=== PATIENT | female | born 1970 | race Caucasian/White ===

== ENCOUNTER 2024-03-31 14:55 | Emergency (ER) | payer OTHER, SELFPAY ==
[2024-03-31] VITALS (8 sets, daily range): BP systolic 158–201; BP diastolic 72–115; PULSE 59–90; RESP 14–21; TEMP 36.6; O2SAT 97–100
--- NOTE | 2024-03-31 15:02 | ED.NAVMDI ---
HPI - Nausea/Vomiting/Diarrhea General Chief complaint: Nausea/Vomiting/Diarrhea <Giselle Morgan PA-C - Last Filed: 03/31/24 15:03> Stated complaint: vomiting x 5 days <Giselle Morgan PA-C - Last Filed: 03/31/24 15:03> Time Seen by Provider: 03/31/24 16:19 <Giselle Morgan PA-C - Last Filed: 03/31/24 15:03> Focused HPI: 53-year-old female presents emergency department for N/V for 5 days. Patient states she is unable to keep down food and fluids and has not urinated since yesterday which prompted her to come to the ED. She also reports cough congestion. No fever, focal abdominal pain, dysuria or hematuria. GENERAL: Well-appearing, well-nourished, and in no acute distress. HEAD: Normocephalic, atraumatic. CHEST: Clear to auscultation. ?No respiratory distress. HEART: Regular rate and rhythm.? NEURO: ?Alert and oriented x3. Patient screened in triage and initial orders placed.? ?Additional care and disposition to be based upon?diagnostic testing and treatment. <Giselle Morgan PA-C - Last Filed: 03/31/24 15:03> History of Present Illness HPI Narrative: I agree with the above HPI <Ulysses Faria MD - Last Filed: 04/01/24 07:37> Related Data Allergies/Adverse reactions: Allergies Allergy/AdvReac Type Severity Reaction Status Date / Time No Known Allergies Allergy Verified 03/31/24 15:00 <Giselle Morgan PA-C - Last Filed: 03/31/24 15:03> Review of Systems Review of Systems: All systems reviewed & are unremarkable except as noted in HPI and below <Ulysses Faria MD - Last Filed: 04/01/24 07:37> Exam Narrative: APPEARANCE: Well appearing, no pain, no distress, well-nourished. HEAD: normocephalic, atraumatic. EYES: PERRLA/EOMI, conjunctivae clear. NOSE: Normal no drainage EARS:TMS clear with good light reflex. THROAT: Pharynx clear, no exudate. NECK: Supple. No adenopathy, no masses. RESPIRATORY: Airway patent, respirations nonlabored. Clear to auscultation bilaterally, no rales, rhonchi, wheezing. CARDIOVASCULAR: Regular rate and rhythm without murmurs rubs or gallops. ABDOMINAL: Soft, nontender, nondistended, normal bowel sounds MUSCULOSKELETAL: Left BKA NEURO: Alert. Cranial nerves II through XII intact. Good gait. Good coordination SKIN: Warm, dry. Normal Color <Ulysses Faria MD - Last Filed: 04/01/24 07:37> Course Course Emergency Course: Zych: Patient signed out pending UA. UA with 51-100 white blood cells, 51-100 red blood cells and +2 leuk esterase. Patient states that she did have dysuria before her current illness occurred. No CVA tenderness. She received fluids/antiemetics and is now resting comfortable in her bed. She has been able to tolerate PO. Patient given a dose of ceftriaxone and discharged on cefdinir. Patient given return precautions. <Franck Angela MD - Last Filed: 03/31/24 20:57> Vital Signs Vital signs: Vital Signs Temperature 97.9 F 03/31/24 14:57 Pulse Rate 81 03/31/24 14:57 Respiratory Rate 17 03/31/24 14:57 Blood Pressure 160/88 H 03/31/24 14:57 Pulse Oximetry 99 03/31/24 14:57 Oxygen Delivery Room Air 03/31/24 14:57 Temperature 97.8 F 03/31/24 17:56 Pulse Rate 72 03/31/24 21:22 Respiratory Rate 14 03/31/24 21:22 Blood Pressure 158/72 H 03/31/24 21:22 Pulse Oximetry 100 03/31/24 21:22 Oxygen Delivery Room Air 03/31/24 14:57 <Giselle Morgan PA-C - Last Filed: 03/31/24 15:03> Vital Signs Temperature 97.9 F 03/31/24 14:57 Pulse Rate 81 03/31/24 14:57 Respiratory Rate 17 03/31/24 14:57 Blood Pressure 160/88 H 03/31/24 14:57 Pulse Oximetry 99 03/31/24 14:57 Oxygen Delivery Room Air 03/31/24 14:57 Temperature 97.8 F 03/31/24 17:56 Pulse Rate 72 03/31/24 21:22 Respiratory Rate 14 03/31/24 21:22 Blood Pressure 158/72 H 03/31/24 21:22 Pulse Oximetry 100 03/31/24 21:22 Oxygen Delivery Room Air 03/31/24 14:57 <Ulysses Faria MD - Last Filed: 04/01/24 07:37> Vital Signs Temperature 97.9 F 03/31/24 14:57 Pulse Rate 81 03/31/24 14:57 Respiratory Rate 17 03/31/24 14:57 Blood Pressure 160/88 H 03/31/24 14:57 Pulse Oximetry 99 03/31/24 14:57 Oxygen Delivery Room Air 03/31/24 14:57 Temperature 97.8 F 03/31/24 17:56 Pulse Rate 72 03/31/24 21:22 Respiratory Rate 14 03/31/24 21:22 Blood Pressure 158/72 H 03/31/24 21:22 Pulse Oximetry 100 03/31/24 21:22 Oxygen Delivery Room Air 03/31/24 14:57 <Franck Angela MD - Last Filed: 03/31/24 20:57> MDM - Nausea/Vomiting/Diarrhea MDM Narrative Medical decision making narrative: 53-year-old female presenting to the emergency department for evaluation for nausea vomiting and dehydration. Patient was afebrile but does have a leukocytosis of 14.3 and hemoglobin of 14. Patient did have a potassium of 3 point the this was replaced with 40 mEq p.o. potassium. Patient was treated with a L of IV fluids and L of lactated Ringer's. On re-evaluation patient reports does feel significantly improved. Patient has had no further nausea and vomiting emergency department. Patient was able to provide a urine sample for us. Patient was negative for influenza RSV and for COVID. <Ulysses Faria MD - Last Filed: 04/01/24 07:37> Differential Diagnosis Differential diagnosis: Likely food poisoning, gastroenteritis, drug-induced nausea and vomiting and dehydration <Ulysses Faria MD - Last Filed: 04/01/24 07:37> Lab Data Attestation: I reviewed the patient's lab results. <Ulysses Faria MD - Last Filed: 04/01/24 07:37> Result diagrams: 03/31/24 15:20 03/31/24 15:20 <Giselle Morgan PA-C - Last Filed: 03/31/24 15:03> Labs: Lab Results 03/31/24 03/31/24 Range/Units 15:20 19:35 WBC 14.3 H (4.5-10.0) K/mm3 RBC 7.27 H (4.2-5.4) M/mm3 Hgb 14.0 (12.0-15.0) g/dL Hct 47.4 H (37.0-47.0) % MCV 65.2 L (80-100) fl MCH 19.3 L (26-34) pg MCHC 29.5 L (32-36) g/dl RDW 20.4 H (11.5-14.5) % Plt Count 412 H (150-375) k/mm3 MPV 9.1 (7.4-10.4) fl Immature Gran % (Auto) 0.4 (0-0.5) % Neut % (Auto) 75.5 H (45.5-73.1) % Lymph % (Auto) 17.7 L (18.3-44.2) % [place] % (Auto) 5.8 (2.6-8.5) % Eos % (Auto) 0.2 (0-4.4) % Baso % (Auto) 0.4 (0.2-1.2) % Lymph # (Auto) 2.52 (0.9-3.2) K/mm3 [place] # (Auto) 0.8 H (0.1-0.6) K/mm3 Eos # (Auto) 0.0 (0-0.3) K/mm3 Baso # (Auto) 0.1 (0.0-0.1) K/mm3 Abs Immat Gran (auto) 0.06 H (0.00-0.031) K/mm3 Absolute Neuts (auto) 10.8 H (1.3-6.7) K/mm3 Absolute Nucleated RBC 0.000 (0.0-0.012) K/mm3 Nucleated RBC % 0.0 (0.0-0.2) % Platelet Estimate Increased (Adequate) Hypochromasia 1+ Anisocytosis 2+ Microcytosis 1+ (NORMAL) Schistocytes None seen Sodium 135 L (137-145) mmol/L Potassium 3.3 L (3.4-5.0) mmol/L Chloride 99 (98-107) mmol/L Carbon Dioxide 24 (22-30) mmol/L Anion Gap 12 (4-12) mmol/L BUN 12 (7-17) mg/dL Creatinine 0.52 L (0.7-1.0) mg/dL Estim Creat Clear Calc 133 ml/min Estimated GFR > 60 (59 - ) Glucose 129 H (65-110) mg/dL Calcium 8.8 (8.4-10.2) mg/dL Total Bilirubin 0.9 (0.2-1.3) mg/dL AST 19 (14-36) U/L ALT 15 (6-35) U/L Alkaline Phosphatase 113 (38-126) U/L Total Protein 8.0 (6.3-8.2) g/dL Albumin 4.1 (3.5-5.1) g/dL Lipase 103 (23-300) U/L Urine Color Yellow (Yellow) Urine Appearance Turbid H (Clear) Urine pH 7.5 (5.0-9.0) Ur Specific [place] 1.025 (1.001-1.035) Urine Protein 4+ H (Negative) mg/dL Urine Glucose (UA) Negative (Negative) mg/dL Urine Ketones Trace H (Negative) mg/dL Ur Blood (Man) 2+ H (Negative) Urine Nitrate Negative (Negative) Urine Bilirubin Negative (Negative) Urine Urobilinogen 1.0 (<2.0) mg/dL Leukocyte Esterase Rfl 1+ H (Negative) YANNICK/UL Urine RBC 51-100 H (0-2) /hpf Urine WBC 51-100 H (0-3) /hpf Ur Squamous Epith Cells None seen (Few) /hpf Urine Bacteria 4+ /hpf Urine Casts 0-2 Influenza A (RT-PCR) Negative (Negative) Influenza B (RT-PCR) Negative (Negative) RSV (RT-PCR) Negative (Negative) SARS-CoV-2 RNA (RT-PCR) Negative (Negative) <Giselle Morgan PA-C - Last Filed: 03/31/24 15:03> Lab Results 03/31/24 03/31/24 Range/Units 15:20 19:35 WBC 14.3 H (4.5-10.0) K/mm3 RBC 7.27 H (4.2-5.4) M/mm3 Hgb 14.0 (12.0-15.0) g/dL Hct 47.4 H (37.0-47.0) % MCV 65.2 L (80-100) fl MCH 19.3 L (26-34) pg MCHC 29.5 L (32-36) g/dl RDW 20.4 H (11.5-14.5) % Plt Count 412 H (150-375) k/mm3 MPV 9.1 (7.4-10.4) fl Immature Gran % (Auto) 0.4 (0-0.5) % Neut % (Auto) 75.5 H (45.5-73.1) % Lymph % (Auto) 17.7 L (18.3-44.2) % [place] % (Auto) 5.8 (2.6-8.5) % Eos % (Auto) 0.2 (0-4.4) % Baso % (Auto) 0.4 (0.2-1.2) % Lymph # (Auto) 2.52 (0.9-3.2) K/mm3 [place] # (Auto) 0.8 H (0.1-0.6) K/mm3 Eos # (Auto) 0.0 (0-0.3) K/mm3 Baso # (Auto) 0.1 (0.0-0.1) K/mm3 Abs Immat Gran (auto) 0.06 H (0.00-0.031) K/mm3 Absolute Neuts (auto) 10.8 H (1.3-6.7) K/mm3 Absolute Nucleated RBC 0.000 (0.0-0.012) K/mm3 Nucleated RBC % 0.0 (0.0-0.2) % Platelet Estimate Increased (Adequate) Hypochromasia 1+ Anisocytosis 2+ Microcytosis 1+ (NORMAL) Schistocytes None seen Sodium 135 L (137-145) mmol/L Potassium 3.3 L (3.4-5.0) mmol/L Chloride 99 (98-107) mmol/L Carbon Dioxide 24 (22-30) mmol/L Anion Gap 12 (4-12) mmol/L BUN 12 (7-17) mg/dL Creatinine 0.52 L (0.7-1.0) mg/dL Estim Creat Clear Calc 133 ml/min Estimated GFR > 60 (59 - ) Glucose 129 H (65-110) mg/dL Calcium 8.8 (8.4-10.2) mg/dL Total Bilirubin 0.9 (0.2-1.3) mg/dL AST 19 (14-36) U/L ALT 15 (6-35) U/L Alkaline Phosphatase 113 (38-126) U/L Total Protein 8.0 (6.3-8.2) g/dL Albumin 4.1 (3.5-5.1) g/dL Lipase 103 (23-300) U/L Urine Color Yellow (Yellow) Urine Appearance Turbid H (Clear) Urine pH 7.5 (5.0-9.0) Ur Specific [place] 1.025 (1.001-1.035) Urine Protein 4+ H (Negative) mg/dL Urine Glucose (UA) Negative (Negative) mg/dL Urine Ketones Trace H (Negative) mg/dL Ur Blood (Man) 2+ H (Negative) Urine Nitrate Negative (Negative) Urine Bilirubin Negative (Negative) Urine Urobilinogen 1.0 (<2.0) mg/dL Leukocyte Esterase Rfl 1+ H (Negative) YANNICK/UL Urine RBC 51-100 H (0-2) /hpf Urine WBC 51-100 H (0-3) /hpf Ur Squamous Epith Cells None seen (Few) /hpf Urine Bacteria 4+ /hpf Urine Casts 0-2 Influenza A (RT-PCR) Negative (Negative) Influenza B (RT-PCR) Negative (Negative) RSV (RT-PCR) Negative (Negative) SARS-CoV-2 RNA (RT-PCR) Negative (Negative) <Ulysses Faria MD - Last Filed: 04/01/24 07:37> Lab Results 03/31/24 03/31/24 Range/Units 15:20 19:35 WBC 14.3 H (4.5-10.0) K/mm3 RBC 7.27 H (4.2-5.4) M/mm3 Hgb 14.0 (12.0-15.0) g/dL Hct 47.4 H (37.0-47.0) % MCV 65.2 L (80-100) fl MCH 19.3 L (26-34) pg MCHC 29.5 L (32-36) g/dl RDW 20.4 H (11.5-14.5) % Plt Count 412 H (150-375) k/mm3 MPV 9.1 (7.4-10.4) fl Immature Gran % (Auto) 0.4 (0-0.5) % Neut % (Auto) 75.5 H (45.5-73.1) % Lymph % (Auto) 17.7 L (18.3-44.2) % [place] % (Auto) 5.8 (2.6-8.5) % Eos % (Auto) 0.2 (0-4.4) % Baso % (Auto) 0.4 (0.2-1.2) % Lymph # (Auto) 2.52 (0.9-3.2) K/mm3 [place] # (Auto) 0.8 H (0.1-0.6) K/mm3 Eos # (Auto) 0.0 (0-0.3) K/mm3 Baso # (Auto) 0.1 (0.0-0.1) K/mm3 Abs Immat Gran (auto) 0.06 H (0.00-0.031) K/mm3 Absolute Neuts (auto) 10.8 H (1.3-6.7) K/mm3 Absolute Nucleated RBC 0.000 (0.0-0.012) K/mm3 Nucleated RBC % 0.0 (0.0-0.2) % Platelet Estimate Increased (Adequate) Hypochromasia 1+ Anisocytosis 2+ Microcytosis 1+ (NORMAL) Schistocytes None seen Sodium 135 L (137-145) mmol/L Potassium 3.3 L (3.4-5.0) mmol/L Chloride 99 (98-107) mmol/L Carbon Dioxide 24 (22-30) mmol/L Anion Gap 12 (4-12) mmol/L BUN 12 (7-17) mg/dL Creatinine 0.52 L (0.7-1.0) mg/dL Estim Creat Clear Calc 133 ml/min Estimated GFR > 60 (59 - ) Glucose 129 H (65-110) mg/dL Calcium 8.8 (8.4-10.2) mg/dL Total Bilirubin 0.9 (0.2-1.3) mg/dL AST 19 (14-36) U/L ALT 15 (6-35) U/L Alkaline Phosphatase 113 (38-126) U/L Total Protein 8.0 (6.3-8.2) g/dL Albumin 4.1 (3.5-5.1) g/dL Lipase 103 (23-300) U/L Urine Color Yellow (Yellow) Urine Appearance Turbid H (Clear) Urine pH 7.5 (5.0-9.0) Ur Specific [place] 1.025 (1.001-1.035) Urine Protein 4+ H (Negative) mg/dL Urine Glucose (UA) Negative (Negative) mg/dL Urine Ketones Trace H (Negative) mg/dL Ur Blood (Man) 2+ H (Negative) Urine Nitrate Negative (Negative) Urine Bilirubin Negative (Negative) Urine Urobilinogen 1.0 (<2.0) mg/dL Leukocyte Esterase Rfl 1+ H (Negative) YANNICK/UL Urine RBC 51-100 H (0-2) /hpf Urine WBC 51-100 H (0-3) /hpf Ur Squamous Epith Cells None seen (Few) /hpf Urine Bacteria 4+ /hpf Urine Casts 0-2 Influenza A (RT-PCR) Negative (Negative) Influenza B (RT-PCR) Negative (Negative) RSV (RT-PCR) Negative (Negative) SARS-CoV-2 RNA (RT-PCR) Negative (Negative) <Franck Angela MD - Last Filed: 03/31/24 20:57> Discharge Plan Discharge Clinical Impression: Nausea & vomiting, Dehydration, UTI (urinary tract infection) <Giselle Morgan PA-C - Last Filed: 03/31/24 15:03> Patient Disposition: Home, Self-Care <Giselle Morgan PA-C - Last Filed: 03/31/24 15:03> Condition: Stable <Giselle Morgan PA-C - Last Filed: 03/31/24 15:03> Instructions: Antibiotic Form, Dehydration (ED), Clear Liquid Diet (ED), Acute Nausea and Vomiting (ED) <Giselle Morgan PA-C - Last Filed: 03/31/24 15:03> Additional Instructions: Zofran as needed for nausea control. Clear liquid diet for the next 1-3 days. Advance to bland diet as tolerated. Complete a course of abx for UTI. Have close follow-up with your primary care physician. Take If you have any worsening symptoms then please call or return to the emergency department <Giselle Morgan PA-C - Last Filed: 03/31/24 15:03> Patient Language: Armenian <Giselle Morgan PA-C - Last Filed: 03/31/24 15:03> Prescriptions: New ondansetron 4 mg tablet,disintegrating 4 mg PO Q8H PRN (Reason: nausea and vomiting) Qty: 14 0RF cefdinir 300 mg capsule 300 mg PO Q12H Qty: 14 0RF <Giselle Morgan PA-C - Last Filed: 03/31/24 15:03> Follow-up/Referrals: PHYSICIAN,P[facility] LATCHER [Primary Care Provider] - <Giselle Morgan PA-C - Last Filed: 03/31/24 15:03>
[2024-03-31] MEDS: ONDANSETRON HCL ODT 4 MG TABLET PO (15:21)
[2024-03-31 15:27] LABS: Basophils Absolute Auto 0.1 K/mm3 (0.0-0.1); Basophils Percent Auto 0.4 % (0.2-1.2); Eosinophils Percent Auto 0.2 % (0-4.4); Hematocrit 47.4 % (37.0-47.0); Immature Granulocyte Absolute 0.06 K/mm3 (0.00-0.031); Immature Granulocyte Percent A 0.4 % (0-0.5); Lymphocytes Absolute Auto 2.52 K/mm3 (0.9-3.2); Lymphocytes Percent Auto 17.7 % (18.3-44.2); Mean Corpuscular HGB Conc 29.5 g/dl (32-36); Mean Corpuscular Hemoglobin 19.3 pg (26-34); Mean Corpuscular Volume 65.2 fl (80-100); Mean Platelet Volume 9.1 fl (7.4-10.4); Monocytes Absolute Auto 0.8 K/mm3 (0.1-0.6); Monocytes Percent Auto 5.8 % (2.6-8.5); Neutrophils Absolute Auto 10.8 K/mm3 (1.3-6.7); Neutrophils Percent Auto 75.5 % (45.5-73.1); Platelet Count Result 412 k/mm3 (150-375); Red Blood Count 7.27 M/mm3 (4.2-5.4); Red Cell Distribution Width 20.4 % (11.5-14.5); White Blood Count 14.3 K/mm3 (4.5-10.0)
[2024-03-31 15:42] LABS: Alanine Aminotransferase 15 U/L (6-35); Albumin Level 4.1 g/dL (3.5-5.1); Alkaline Phosphatase 113 U/L (38-126); Anion Gap 12 mmol/L (4-12); Aspartate Amino Transferase 19 U/L (14-36); Bilirubin,Total 0.9 mg/dL (0.2-1.3); Blood Urea Nitrogen 12 mg/dL (7-17); Calcium 8.8 mg/dL (8.4-10.2); Carbon Dioxide 24 mmol/L (22-30); Chloride 99 mmol/L (98-107); Estimated CRCL calculation 133 ml/min; Estimated Glomerular Filt Rate > 60; Glucose 129 mg/dL (65-110); Lipase 103 U/L (23-300); Potassium 3.3 mmol/L (3.4-5.0); Sodium 135 mmol/L (137-145)
[2024-03-31 15:54] LABS: Hypochromasia 1+; Platelet Estimate Increased (Adequate)
[2024-03-31 15:55] LABS: Anisocytosis 2+
[2024-03-31 15:56] LABS: Microcytosis 1+ (NORMAL); Schistocytes None Seen
[2024-03-31 16:03] LABS: Influenza A QL RT-PCR Negative (Negative); Influenza B QL RT-PCR Negative (Negative); RSV RNA, RT-PCR Negative (Negative); SARS-CoV-2 RNA PCR Negative (Negative)
--- OUTSIDE RECORDS SUMMARY | 2024-03-31 16:53 | XMS_ITS | Data Portability ---
Author Organization [place] - [facility] [employer], Main Office Address [address] [place] [address] Care Team Providers Care Patternmaker Plaster Name Role Phone APOLLO PEARCE Primary Care Provider Assessment Encounter Date Assessment Date Assessment LastModified by Organization Details LastModified Time 09/10/2022 09/10/2022 D/w pt about her findings and [place] refer pt to Pain clinic for her chronic pain meds. Cont f/u with Vascular surgeon at [place] as per schedule. Meds as directed. Routine wound care explained. BP and DM diary education given. Educated pt about alarming symptoms to monitor at home. F/u in few weeks as directed for Annual exam. [email or web address] Not available 09/10/2022 17:04:22 Plan of Treatment Reminders Order Date Submit Date Provider Last Modified By Organization Details Last Modified Time Details Appointments None recorded. Lab None recorded. Referral pain management referral 2022 023 [email or web address] Ebony Salas MD, [address] [place], [address], 3 10:31:34 Procedures None recorded. Surgeries None recorded. Imaging None recorded. Medication Orders nicotine 14 mg/24 hr daily transdermal patch 2022 023 [facility] #09871, [address] [place], [place], [id number], 3 16:49:17 gabapentin 300 mg capsule 2022 023 [facility]15296, [address] [place], [place], [phone], 3 16:49:19 trazodone 100 mg tablet [address] [facility]14907, [address] [place] [address], [id number], 3 17:04:50 silver sulfadiazin e 1 % topical cream 2022 023 [facility]63886, [address] [place] [address], [id number], 3 16:50:29 bupropion HCl XL 300 mg 24 hr tablet, extended release 2022 023 [email or web address] [facility] #48252, [address] [place] [address], [id number], 3 17:04:50 Patient TargetsNo targets recorded. Patient InstructionsNo instructions recorded. Reason for Referral Pain Management Referral for Chronic pain Referring Physician: Apollo Pearce, Family Medicine, Encounter Date: 09/10/2022 Problems Name Problem SNOMED Code Status Onset Date Resolution Date Notes Provider Name and Address Organization Details Recorded Time Hypertensiv e disorder 58318302 Active 2022 Apollo Pearce MD [address], [place], [address], [employer] 3 16:42:13 Hyperlipide leticia 78323435 Active 2022 Apollo Pearce MD [address], [place], [address], Who@ 3 16:42:16 Type 2 diabetes mellitus without complicatio n 095531334 Active 2022 Apollo Pearce MD [address], [place], [address], [employer] 3 16:42:26 Diabetic peripheral neuropathy 643898964 Active 2022 Apollo Pearce MD [address], [address], [place], [address], Who@ 3 16:42:36 Chronic pain 91706824 Active 2022 Apollo Pearce MD [address], [address], [place], [address], Who@ 3 16:43:25 Depressive disorder 72552382 Active 2022 Apollo Pearce MD [address], [address], [place], [address], Who@ 3 16:43:43 Smoker 10350551 Active 2022 Apollo Pearce MD [address], [place], [address], Who@ 3 16:43:56 Chronic insomnia 756237843 Active 2022 Apollo Pearce MD [address], [place], [address], Who@ 3 16:45:40 Partial thickness burn of right thigh 1392575407542 9103 Active 2022 Apollo Pearce MD [address], [place], [address], Who@ 3 16:49:47 Obesity 744823651 Active 2022 Apollo Pearce MD [address], [place], [address], Who@ 3 17:02:44 Problem Notes None recorded. Procedures Surgical History Date Name Laterality Status Provider Name and Address Organization Details Recorded Time Smoking Cessation completed Apollo Pearce MD [address], [place], [address], Who@ 09/10/2022 16:53:05 Imaging Results None recorded. Procedure Notes None recorded. Medical Equipment None Reported. Allergies Allergen ID Allergen Name Allergen Category Reaction Reaction Severity Criticality Documentation Date Start Date Code Code System Note Provider Name and Address Organization Details Recorded Time 86259 metformin medicatio n abdominal pain severe Not available 09/10/2022 6809 RxNorm Apollo Pearce MD [address], [place], [address] , [facility] [employer] [facility] 3 16:47:39 Medications Name Sig Start Date Stop Date Status Note LastModified by Organization Details LastModified Time losartan 50 mg tablet TAKE 1 TABLET(50 MG) BY MOUTH DAILY active Not Available Not Available No t Available silver sulfadiazin e 1 % topical cream APPLY 1.5 MM THICK LAYER TO ENTIRE BURN AREA TWICE DAILY active Not Available Not Available No t Available metformin 500 mg tablet 09/10 completed Not Available Not Available Not Available doxycycline hyclate 100 mg capsule 02/01 completed Not Available Not Available Not Available atorvastati n 20 mg tablet active Not Available Not Available Not Available nicotine 14 mg/24 hr daily transdermal patch APPLY ONE PATCH EVERY DAY DIRECTED active Not Available Not Available No t Available cetirizine 5 mg tablet active Not Available Not Available Not Available hydrocodone 5 mg-acetamin ophen 325 mg tablet TAKE 1 TABLET BY MOUTH EVERY 6 HOURS NEEDED FOR PAIN 02/01 completed Not Available Not Available Not Available ondansetron HCl 4 mg tablet 09/10 completed Not Available Not Available Not Available metronidazo le 500 mg tablet 09/10 completed Not Available Not Available Not Available acetaminoph en 500 mg tablet TAKE 1 TABLET BY MOUTH EVERY 6 HOURS NEEDED FOR PAIN active Not Available Not Available No t Available trazodone 100 mg tablet TAKE 1 TABLET BY MOUTH EVERY DAY AT BEDTIME active Not Available Not Available No t Available OneTouch Ultra Test strips TEST BLOOD SUGAR TWICE DAILY active Not Available Not Available No t Available amlodipine 10 mg tablet TAKE 1 TABLET(10 MG) BY MOUTH DAILY active Not Available Not Available No t Available glipizide ER 2.5 mg tablet, extended release 24 hr TAKE 1 TABLET(2. 5 MG) BY MOUTH DAILY WITH BREAKFAST . DO NOT BREAK OR CRUSH TABLET active Not Available Not Available No t Available cephalexin 500 mg capsule 02/01 completed Not Available Not Available Not Available erythromyci n 5 mg/gram (0.5 %) eye ointment APPLY THIN LAYER IN RIGHT EYE EVERY 6 HOURS FOR 10 DAYS 02/01 completed Not Available Not Available Not Available losartan 25 mg tablet 02/01 completed Not Available Not Available Not Available gabapentin 300 mg capsule TAKE 1 CAPSULE BY MOUTH EVERY 8 HOURS DIRECTED active Not Available Not Available No t Available vancomycin 10 gram intravenous solution active Not Available Not Available Not Available levofloxaci n 750 mg tablet 09/10 completed Not Available Not Available Not Available albuterol sulfate HFA 90 mcg/actuati on aerosol inhaler INHALE 2 PUFFS INTO LUNGS EVERY 4 HOURS NEEDED FOR WHEEZING OR SHORTNESS OF BREATH active Not Available Not Available No t Available losartan 50 mg-hydrochl orothiazide 12.5 mg tablet TAKE 1 TABLET BY MOUTH EVERY DAY FOR 5 DAYS active Not Available Not Available No t Available metoclopram shell 10 mg tablet 09/10 completed Not Available Not Available Not Available amoxicillin 875 mg-potassiu m clavulanate 125 mg tablet TAKE 1 TABLET BY MOUTH TWICE DAILY FOR 10 DAYS 02/01 completed Not Available Not Available Not Available ceftriaxone 2 gram solution for injection active Not Available Not Available No t Available oxycodone 5 mg tablet 09/10 completed Not Available Not Available Not Available potassium chloride ER 10 mEq tablet,exte nded release(par t/cryst) 09/10 completed Not Available Not Available Not Available bupropion HCl XL 300 mg 24 hr tablet, extended release TAKE 1 TABLET BY MOUTH EVERY DAY DIRECTED active Not Available Not Available No t Available duloxetine 60 mg capsule,del ayed release 09/10 completed Not Available Not Available Not Available oxycodone 10 mg tablet TAKE 1 TABLET BY MOUTH EVERY SIX HOURS NEEDED 02/01 completed Not Available Not Available Not Available Gavilax 17 gram/dose oral powder DISSOLVE INSERT CAPFUL IN 240 ML OF WATER AND DRINK BY MOUTH DAILY NEEDED FOR CONSTIPAT ION active Not Available Not Available No t Available OneTouch Ultra2 Meter TEST BLOOD SUGAR TWICE DAILY active Not Available Not Available No t Available Vitals Date Recorded Body height Body mass index (BMI) Body weight Body temperature Heart rate Respiratory rate Systolic blood pressure Diastolic blood pressure Provider Name and Address Organization Details Last Updated DateTime 3 162.56 cm 34.3 kg/m2 61991.4 7 g 98.5 [degF] 98 /min 16 /min 140 mm[Hg] 77 mm[Hg] Ulysses Wadsworth Ciafo [facility] [employer] 16:57:06 Date Recorded Oxygen saturation Oxygen saturation in Arterial blood by Pulse oximetry Provider Name and Address Organization Details Last Updated DateTime 09/10/2022 98 % 98 % Apollo Pearce MD [address] [facility], [facility] [address], [place], [address], [place] [facility] [employer] 09/10/2022 16:57:03 Social History Question Answer Notes LastModified by Organizat ion Details LastModified Time Tobacco Smoking Status Current Every Day Smoker Ulysses Wadsworth fritz, [place] [facility] [employer] 09/10/2022 16:31:25 Do You Have An Advance Directive? No Information n ot available 09/10/2022 Is Blood Transfusion Acceptable In An Emergency? Yes Information not available 09/10/2022 What Is Your Code Status? Full Code Information not available 09/10/2022 In The 14 Days Before Symptom Onset, Have You Had Close Contact With A Laboratory-confirm ed COVID-19 While That Case Was Ill? No Information n ot available 09/10/2022 In The 14 Days Before Symptom Onset, Have You Had Close Contact With A Person Who Is Under Investigation For COVID-19 While That Person Was Ill? No Information not available 09/10/2022 What Type Of Diet Are You Following? REGULAR Information n ot available 09/10/2022 How Many Days Of Moderate To Strenuous Exercise, Like A Brisk Walk, Did You Do In The Last 7 Days? 0 Information not available 09/10/2022 Do You Have A Medical Power Of Public Health Sanitarian? No Information not available 09/10/2022 Do You Use Your Seat Belt Or Car Seat Routinely? Yes Information not available 09/10/2022 At What Age Did You Start Smoking Tobacco? 18 Information not available 09/10/2022 How Much Tobacco Do You Smoke? 2 PPW Information not available 09/10/2022 Do You Participate In Social Media? Yes Information not available 09/10/2022 What Types Of Sporting Activities Do You Participate In? Non Information not available 09/10/2022 Do You Feel Stressed (tense, Restless, Nervous, Or Anxious, Or Unable To Sleep At Night)? [id number] Information not available 09/10/2022 How Many Years Have You Smoked Tobacco? 20 Information not available 09/10/2022 Have You Recently Traveled Abroad? No Information not available 09/10/2022 Do You Or Have You Ever Used Any Other Forms Of Tobacco Or Nicotine? No Information not available 09/10/2022 Sex: Female Functional Status Question Answer Note LastModified by Organization D etails LastModified Time What is your exercise level? None Information not available 09/10/2022 Mental Status None recorded. Family History Nothing Reported. Medical History Condition Response BLINDNESS N RHEUMATIC FEVER N BLADDER PROBLEMS N KIDNEY STONES N MRSA N OTHER # 1 N POLIO N LUNG DISEASE/DISORDER N HISTORY OF DRUG ABUSE N RADIATION / CHEMOTHERAPY N COPD N Other # 2 N BLOOD DISEASES N SURGERY N EAR OR HEARING PROBLEMS N MUMPS N SHINGLES N DEPRESSION (INCLUDING POST ) N FEMALE PROBLEMS / INFECTIONS N BOWEL PROBLEMS N FAILED BACK SYNDROME N STROKE/TIA N THYROID DISEASE N ULCERS N BENIGN PROSTATIC HYPERPLASIA N MEASLES N CERVICALGIA N HYPOTENSION N TB SKIN TEST N MYOCARDIAL INFARCTION N PARAPELGIA N OBESITY N GERD/NAUSEA N ANEURYSM N URINARY/BLADDER/KIDNEY PROBLEMS N CORONARY ARTERY DISEASE (CAD) N MENIERE'S DISEASE N Do you have Advance directive? N ADDICTION CONCERNS N ENDOMETRIOSIS N USE OF BLOOD THINNERS N SKIN PROBLEMS N EMPHYSEMA N GASTROINTESTINAL DISORDER N PERIPHERAL ARTERY DISEASE N MUSCLE,JOINT OR BONE PROBLEMS N GASTROINTESTINAL BLEEDING N BLOOD CLOTS N ASTHMA N Abdominal Pain N CATARACTS N ARTERIAL INSUFFICIENCY N ERECTILE DYSFUNCTION N GI PROBLEMS N CHF N Low Testosterone N NEUROPATHY N INFERTILITY N AIDS/HIV N FRACTURES N CHEMOTHERAPY / RADIATION N VISION/EYE PROBLEMS N LIVER DISEASE N HYPERTENSION N TOURETTE'S N ANXIETY DISORDER N BLOOD TRANSFUSION N ANEMIA/BLOOD DISORDER N CHRONIC EAR INFECTIONS N BRONCHITIS N TUBERCULOSIS N GLAUCOMA N FOOT PROBLEM N DIVERTICULITIS N CHICKENPOX N SLEEP APNEA N BACK INJECTIONS N ALLERGIES/HAYFEVER N INFECTIOUS DISEASE N HEART ARRHYTHMIA N PROSTATE N ESRD N INSOMNIA N HIGH CHOLESTEROL / HYPERLIPIDEMIA N HYPERTHYROIDISM N EYE PROBLEMS N PVD N EATING DISORDER N EDEMA N CHRONIC PAIN SYNDROME N CAROTID BLOCKAGE N CONSTIPATION N BACK / NECK PROBLEMS N HAVE YOU BEEN HOSPITALIZED OR SEEN IN E ER IN THE PAST YEAR ? N ATHEROSCLEROSIS N BREAST PROBLEMS N DIALYSIS N POLYCYSTIC OVARIES N ECZEMA N FIBROMYALGIA N OSTEOPOROSIS N ARTHRITIS N NO SIGNIFICANT PAST MEDICAL HISTORY N APPENDICITIS N DIABETES, TYPE N BAD TEETH N VON WILLIBRAND'S DISEASE N HEARTBURN / REFLUX N ADD/ADHD N AUTISM SPECTRUM DISORDER (ASD) N POST LAMINECTOMY SYNDROME N HEPATITIS / LIVER DISEASE N PULMONARY DISEASE N GOUT N SLEEP DISORDER N ALZHEIMER'S DISEASE N PAIN N HERPES N DEMENTIA N HEADACHES/MIGRAINES N SEIZURES/EPILEPSY N VASCULAR DISEASE N PACEMAKER N DIZZINESS N HEART DISEASE/HEART PROBLEMS N KIDNEY DISEASE N DEVELOPMENTAL OR BEHAVIORAL DISORDERS N MULTIPLE SCLEROSIS N SCARLET FEVER N MENTAL DISORDER/ILLNESS N NEUROPSYCHOLOGICAL N CARDIAC ARRHYTHMIA N CANCER: SPECIFY N PNEUMONIA N ATRIAL FIBRILLATION N Gall Stones N PULMONARY EMBOLISM N AUTOIMMUNE DISEASE N Gynecological History Statement/Question Response STIs/STDs N Sexually Active? N Obstetrics History GPAL:G 3 P 0 0 0 0 Past Encounters Encounter ID Performer Location Encounter Start Date Encounter Closed Date Diagnosis/Indication Diagnosis SNOMED-CT Code Diagnosis ICD10 Code Diagnosis Note [id number] Apollo Pearce MD [facility] [address] [address] 09/10/2022 16:21:55 09/10/2022 17:10:39 Amputated left lower limb below knee 330312738 Z89.512 08/04/22 Hypertensive disorder 38 989165 I10 Hyperlipidemia 69042207 E78.5 Type 2 baltazar betes mellitus without complication 488559486 E11.9 Diabetic p eripheral neuropathy 720184735 E11.40 Chronic pain 17950038 G8 9.29 Depressive disorder 3548 9007 F32.A Smoker 75001136 F17.200 Chronic insomnia 9764632 04 F51.04 Partial th ickness burn of right thigh 0018076579 7031132 T24.211A Obesity 624628818 E66.9 Health Concerns Section Related Observation LastModified by Organization Detai ls LastModified Time None Recorded Concern Status LastModified by Organization Details LastModified Time None Recorded Advance Directives Directive N: Payers Encounter Date Sequence Insurance Name Policy Number Policy Mccoy Covered Member ID Mccoy Member ID Guarantor Name 09/10/2022 1 [facility] (MEDICAID HMO) [id number] Sandra Hernandez [id number] Sandra Notes Date Note Type Note Provider Name and Address Organization Details Recorded Time 09/10/2022 text/html New pt visit:51 yo F is here to establish her care. Pt was seeing PCP at [facility] in the past.Needs refills on her meds. 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 Pt will be getting a prosthetic leg in future with them. Pt has chronic pain and is on [place] 10/325 QID for last several years by her PCP. Pt has never seen any specialist for this in the past. C/o insomnia and is on Ambien for it for last several years. C/o Rt thigh burn yesterday when she was making her oatmeal. No other area rash. Doing overall good with her mood. Denies any mood swings/SI/HI. Pt lives with her mom.PMH, FH and SH reviewed. Apollo Pearce MD [address] [place] [address], [facility] [address], [place], [address], [facility] [employer] 09/10/2022 17:04:59 OBGyn Episode No OBEpisode recorded.
--- OUTSIDE RECORDS SUMMARY | 2024-03-31 16:53 | XMS_ITS | Clinical Summary ---
Author Organization [facility] Address [address] [place] [address] Care Team Providers Care Roll Clamp Operator Name Role Phone Apollo Pearce MD Primary Care Provider [phone] Allergies Active Allergy Reactions Criticality Noted Date Comments Metformin Stomach upset High 10/08/2023 Medications albuterol HFA (PROVENTIL HFA,VENTOLIN HFA,PROAIR HFA) 90 mcg/actuation inhaler INHALE 2 PUFFS INTO LUNGS EVERY 4 HOURS NEEDED FOR WHEEZING OR SHORTNESS OF BREATH Active amLODIPine (NORVASC) 10 mg tablet Take by mouth daily 3 Active aspirin 81 mg chewable tablet Take 1 tablet (81 mg total) by mouth daily Active atorvastatin (LIPITOR) 20 mg tablet Active buPROPion XL (WELLBUTRIN XL) 300 mg 24 hr tablet Take 1 tablet (300 mg total) by mouth daily 3 Active carvediloL (COREG) 6.25 mg tablet Take 1 tablet (6.25 mg total) by mouth 1 Active cetirizine (ZyrTEC) 5 mg tablet Take 1 tablet (5 mg total) by mouth daily Active DULoxetine DR (CYMBALTA) 30 mg capsule Take 1 capsule (30 mg total) by mouth daily 1 Active gabapentin (NEURONTIN) 300 mg capsule TAKE 1 CAPSULE BY MOUTH EVERY 8 HOURS DIRECTED 3 Active glipiZIDE XL (GLUCOTROL XL) 2.5 mg 24 hr tablet TAKE 1 TABLET(2.5 MG) BY MOUTH DAILY WITH BREAKFAST. DO NOT BREAK OR CRUSH TABLET 3 Active HYDROcodone-gino taminophen (NORCO) 5-325 mg per tablet Take by mouth every 6 (six) hours as needed Active ibuprofen 200 mg tab/cap Take 1 tablet/capsule (200 mg total) by mouth every 6 (six) hours as needed 8 Active losartan (COZAAR) 25 mg tablet Active losartan (COZAAR) 50 mg tablet Take 1 tablet (50 mg total) by mouth daily 3 Active losartan (COZAAR) 100 mg tablet Take 1 tablet (100 mg total) by mouth daily 1 Active losartan-hydroC HLOROthiazide (HYZAAR) 50-12.5 mg per tablet TAKE 1 TABLET BY MOUTH EVERY DAY FOR 5 DAYS Active morphine ER (MS CONTIN) 60 mg 12 hr tablet Take 2 tablets (120 mg total) by mouth every 12 (twelve) hours 0 Active nicotine (NICODERM CQ) 14 mg APPLY ONE PATCH EVERY DAY DIRECTED Active oxyCODONE (ROXICODONE) 10 mg tablet TAKE 1 TABLET BY MOUTH EVERY SIX HOURS NEEDED Active polyethylene glycol (MIRALAX) 17 gram packet Take 1 packet (17 g total) by mouth daily as needed 3 Active traZODone (DESYREL) 100 mg tablet Take 1 tablet (100 mg total) by mouth nightly 3 Active zolpidem (AMBIEN) 5 mg tablet Take 1 tablet (5 mg total) by mouth nightly as needed 1 Active Active Problems Problem Noted Date Diagnosed Date Hypokalemia 11/19/2022 Chronic insomnia 09/10/2022 Chronic pain 09/10/2022 Depressive disorder 09/10/2022 Diabetic peripheral neuropathy (CMS/HCC) 023 Hyperlipidemia 09/10/2022 Obesity 09/10/2022 Partial thickness burn of right thigh 09/10/2022 Smoker 09/10/2022 Type 2 diabetes mellitus without complication (C MS/HCC) 09/10/2022 Bacteremia 07/30/2022 Syncope 07/30/2022 Osteomyelitis 07/17/2022 Osteomyelitis of foot, left, acute (CMS/HCC) 02/2021 Diabetic foot ulcer (CMS/HCC) 01/08/2022 Ulcers of both lower legs 01/24/2021 Leukocytosis (leucocytosis) 03/05/2019 Pre-diabetes 06/18/2017 Major depressive disorder wi th single episode, in full remission 10/06/2016 Morbid obesity due to excess calories 10/06/2016 Constipation due to opioid therapy 07/07/2015 Chronic, continuous use of opioids 07/05/2015 Neuropathy 09/24/2012 Overview (10/08/2023): Unspecified autoimmune neuropathy, involving both large and small fibers. Dr Rome. Hypertension 11/09/2011 Neuropathic pain 05/18/2011 Paresthesia of both legs 01/30/2011 Fatty infiltration of liver 12/01/2010 Allergic rhinitis 06/05/2008 Dyslipidemia 06/05/2008 Generalized anxiety disorder 06/05/2008 Encounters Date Type Department Care Team Description 03/07/2024 6:04 PM DEVELOPER PROGRAMMER - 03/07/2024 11:59 PM DEVELOPER PROGRAMMER Hospital Encounter [address] [id number] Dysuria Discharge Disposition: Discharge to home or self care 03/07/2024 5:30 PM DEVELOPER PROGRAMMER Office Visit [facility] Care at [address] [address] Bri Keys NP Dysuria (Primary Dx) from Last 3 Months Social History Tobacco Use Types Packs/Day Years Used Date Smoking Tobacco: Never Assessed Comments Unknown Sex and Gender Information Value Date Recorded Sex Assigned at Not on file Legal Sex Female 9:40 AM DEVELOPER PROGRAMMER Gender Identity Not on file Sexual Orientation Not on file Obstetrics History Last Filed Vital Signs Vital Sign Reading Time Taken Comments Blood Pressure 128/70 03/07/2024 6:02 PM DEVELOPER PROGRAMMER Pulse 79 03/07/2024 6:02 PM DEVELOPER PROGRAMMER Temperature 36.7 C (98.1 F) 03/07/2024 6:02 PM DEVELOPER PROGRAMMER Respiratory Rate 28 03/07/2024 6:02 PM DEVELOPER PROGRAMMER Oxygen Saturation 99% 03/07/2024 6:02 PM DEVELOPER PROGRAMMER Inhaled Oxygen Concentration - - Weight 111.1 kg (245 lb) 03/07/2024 6:02 PM DEVELOPER PROGRAMMER Height 170.2 cm (5' 7 ) 11/25/2023 12:16 PM CDT Body Mass Index 38.37 11/25/2023 12:16 PM CDT Plan of Treatment Health Maintenance Due Date Last Done Comments Albumin Creatinine Ratio, Urine 1972 Breast Cancer Screening-Mammogram 1972 Cervical Cancer Screening 1972 Colon Cancer Screening-Colonoscopy 1972 Depression Screening 1972 Hemoglobin A1C 1972 Hepatitis C Screening 1972 eGFR 1972 Dilated Eye Exam 1972 Foot Exam 1972 Pneumococcal vaccine <65 (1 of 2 - PCV) 1978 Hepatitis B Screening 1990 Regular Well Visit/Exam 18-64 1990 Zoster Vaccine (1 of 2) 2022 Lipid Panel 01/09/2023 01/09/2022, 01/17/2008 Covid-19 Vaccine (3 - 2023-2 5 season) 2023 07/07/2020, 06/09/2020 DTaP/Tdap/Td Vaccine (2 - Td or Tdap) 01/15/2032 01/14/2022, 02/22/2003 Influenza Vaccine Completed 2023, , 12/07/2018, Additional history exists Procedures Procedure Name Priority Date/Time Associated Diagnosis Comments POCT URINALYSIS DIPSTICK Routine 03/07/2024 6:07 PM DEVELOPER PROGRAMMER Dysuria URINE CULTURE Routine 03/07/2024 6:04 PM DEVELOPER PROGRAMMER Dysuria from Last 3 Months Results * (ABNORMAL) POCT urinalysis dipstick (03/07/2024 6:07 PM DEVELOPER PROGRAMMER) Color, Urine, POC Dark Yellow Clarity, ur, POC Cloudy(A) Clear Glucose, ur, POC Negative Negative MG/DL Bilirubin, ur, POC Negative Negative, Small, Moderate, Large Ketones, ur, POC Negative Negative Specific [place], POC 1.020 1.003 - 1.030 Blood, ur, POC Small(A) Negative pH, ur, POC 6.5 5.0 - 8.0 Protein, ur, POC 100.(A) Negative Urobilinogen, urine, POC 0.2 0.2 - 1.0 mg/dL Nitrite, ur, POC Negative Negative Leukocytes, ur, POC Negative Negative Lot Number [id number] Urine 03/07/2024 6:07 PM DEVELOPER PROGRAMMER Bri Keys NP POINT OF CARE TEST ORDERAB LES Final Result * Urine culture Urine, clean voided (03/07/2024 6:04 PM DEVELOPER PROGRAMMER) Report Final Report: Less than 100,000 colonies/mL (clinically insignificant growth based on current clinical standards) Comment:Testing performed by : [facility], [address] [place]., [address] Organism (CLINICALLY INSIGNIFICANT GROWTH ROSIE Urine, clean voided 03/07/2024 6:04 PM DEVELOPER PROGRAMMER 03/08/2024 2:15 AM DEVELOPER PROGRAMMER Narrative ROSIE SERNA - 03/10/2024 6:33 AM DEVELOPER PROGRAMMER Testing performed by [facility] ([phone]) Bri Keys NP LAB MICROBIOLOGY - GENERAL ORDERABLES Final Result ROSIE [id number] [address] Department [place] [address] from Last 3 Months Insurance [facility] Care Teams Roll Clamp Operator Relationship Specialty Start Date End Date Apollo Pearce MD [address] [place] [address] [place] [address] PCP - General Family Medicine 09/15/22
--- OUTSIDE RECORDS SUMMARY | 2024-03-31 16:53 | XMS_ITS | Referral Summary ---
Author Organization [facility] Address [address] [place] [address] Care Team Providers Care Hand Grinder Name Role Phone Apollo Pearce MD Primary Care Provider [phone] Encounters Date Type Department Care Team Description 03/07/2024 6:04 PM FINGERPRINT CLASSIFIER - 03/07/2024 11:59 PM FINGERPRINT CLASSIFIER Hospital Encounter [address] [id number] Dysuria Discharge Disposition: Discharge to home or self care 03/07/2024 5:30 PM FINGERPRINT CLASSIFIER Office Visit [facility] [address] [address] Bri Keys NP Dysuria (Primary Dx) from Last 3 Months Allergies Active Allergy Reactions Criticality Noted Date [...] 06/05/2008 Dyslipidemia 06/05/2008 Generalized anxiety disorder 06/05/2008 Social History Tobacco Use Types Packs/Day Years Used Date Smoking Tobacco: Never Assessed Comments Unknown Sex and Gender Information Value Date Recorded Sex Assigned at Not on file Legal Sex Female 9:40 AM FINGERPRINT CLASSIFIER Gender Identity Not on file Sexual Orientation Not on file Last Filed Vital Signs Vital Sign Reading Time Taken Comments Blood Pressure 128/70 03/07/2024 6:02 PM FINGERPRINT CLASSIFIER Pulse 79 03/07/2024 6:02 PM FINGERPRINT CLASSIFIER Temperature 36.7 C (98.1 F) 03/07/2024 6:02 PM FINGERPRINT CLASSIFIER Respiratory Rate 28 03/07/2024 6:02 PM FINGERPRINT CLASSIFIER Oxygen Saturation 99% 03/07/2024 6:02 PM FINGERPRINT CLASSIFIER Inhaled Oxygen Concentration - - Weight 111.1 kg (245 lb) 03/07/2024 6:02 PM FINGERPRINT CLASSIFIER Height 170.2 cm (5' 7 ) 11/25/2023 12:16 PM CDT Body Mass Index 38.37 11/25/2023 12:16 PM CDT Plan of Treatment Not on file Procedures Procedure Name Priority Date/Time Associated Diagnosis Comments POCT URINALYSIS DIPSTICK Routine 03/07/2024 6:07 PM FINGERPRINT CLASSIFIER Dysuria URINE CULTURE Routine 03/07/2024 6:04 PM FINGERPRINT CLASSIFIER Dysuria from Last 3 Months Results * (ABNORMAL) POCT urinalysis dipstick (03/07/2024 6:07 PM FINGERPRINT CLASSIFIER) Color, Urine, POC Dark Yellow Clarity, ur, POC Cloudy(A) Clear Glucose, ur, POC Negative Negative MG/DL Bilirubin, ur, POC Negative Negative, Small, Moderate, Large Ketones, ur, POC Negative Negative Specific [place], POC 1.020 1.003 - 1.030 Blood, ur, POC Small(A) Negative pH, ur, POC 6.5 5.0 - 8.0 Protein, ur, POC 100.(A) Negative Urobilinogen, urine, POC 0.2 0.2 - 1.0 mg/dL Nitrite, ur, POC Negative Negative Leukocytes, ur, POC Negative Negative Lot Number [id number] Urine 03/07/2024 6:07 PM FINGERPRINT CLASSIFIER Bri Keys NP POINT OF CARE TEST ORDERAB LES Final Result * Urine culture Urine, clean voided (03/07/2024 6:04 PM FINGERPRINT CLASSIFIER) Report Final Report: Less than 100,000 colonies/mL (clinically insignificant growth based on current clinical standards) Comment:Testing performed by : [facility], [address] [place]., [address] Organism (CLINICALLY INSIGNIFICANT GROWTH ROSIE Urine, clean voided 03/07/2024 6:04 PM FINGERPRINT CLASSIFIER 03/08/2024 2:15 AM FINGERPRINT CLASSIFIER Narrative ROSIE SERNA - 03/10/2024 6:33 AM FINGERPRINT CLASSIFIER Testing performed by [facility] Laboratory ([phone]) Bri Keys NP LAB MICROBIOLOGY - GENERAL ORDERABLES Final Result ROSIE SERNA [id number] [place] [address] from Last 3 Months Insurance [facility] Care Teams Hand Grinder Relationship Specialty Start Date End Date Apollo Pearce MD [address] [place] [address] [place] [address] PCP - General Family Medicine 09/15/22
--- OUTSIDE RECORDS SUMMARY | 2024-03-31 16:53 | XMS_ITS | Continuity of Care Document ---
Author Organization [facility] Address [address] [place] [address] Phone Care Team Providers [facility] Name Role Phone Stacie Mckeon MD Unavailable Unavailable Medications Medication Instructions Dosage Effective Dates (start - stop) Status Comments Ortho-Cept (28) 0.15 mg-30 mcg Tab ORTHO-CEPT 28 DAY TABLET<><> 1 TAB by mouth (PO) each morning.<><> First day of next or Wednesday.<><> As directed by physician.<><>DISPEN SE: <>REFILLS: 9<>Provider: STACIE MCKEON MD<>Provider SHERITA: [id number]<>Health Center: [facility]<><> - No Longer Active Procedures Procedure Date OFFICE O/P EST 5 MIN SKIN TEST; TUBERCULOSIS, INTRADERMAL May OFFICE O/P EST 5 MIN Advance Directives Directive Yes / No Effective Date File Name No Information Encounters Encounter Description Practice Location Reason(s) For Visit Diagnoses Date Provider Providers Copied on Encounter [facility] , [address], [place], [place], [id number], [place] tel:[phone] [facility] No Information [facility]. [address], [place], [place], [address], [place]. tel:[phone] OFFICE O/P EST 5 MIN [facility] , [address], [place], [place], [id number], tel:[phone] [facility] FOLLOW-UP EXAM NOS No Information OFFICE O/P EST 5 MIN [facility] , [address], [place], [place], [address], [place] tel:[phone] [facility] ROUTINE MEDICAL EXAM No Information Family History Family Member Type Diagnosis Age At Onset No Information Payers Payer name Insurance type Covered constitution party ID Authoriza tion(s) No Information Social History Type Description Quantity Date Captured Comments Sex Female Smoking Status No Information Chief Complaint And Reason For Visit No Information Reason For Referral Reason For Referral No Information History Of Present Illness Encounter Date Complaint History Of Prese nt Illness No Information Functional Status Date Functional Assessmen t No Information Instructions Date Instruction Additional Infor mation No Information Assessments Type Assessment Date No Information Patient Care Teams Name Effective Dates (start - stop) Status Members No Information
--- OUTSIDE RECORDS SUMMARY | 2024-03-31 16:53 | XMS_ITS | Continuity of Care Document ---
Author Organization [employer] Address [address] [place] [address] Phone Care Team Providers Care Customer Service Cashier Name Role Phone Manjinder Kim MD Unavailable Unavaila ble Allergies, Adverse Reactions, Alerts Substance Reaction Status Criticality No Known Allergies Active No Inform ation Medications Medication Instructions Dosage Effective Dates (start - stop) Status Comments duloxetine 60 mg capsule,delayed release TAKE 1 CAPSULE BY MOUTH EVERY DAY - Active LOSARTAN-HCTZ 100-25 MG TAB TAKE 1 TABLET BY MOUTH EVERY MORNING - Active hydrocodone 10 mg-acetaminophen 325 mg tablet take 2 tablet by oral route every 4 - 6 hours as needed for pain 2 tablet - Active Rx refilled on 05/08/21. Pt asking for refill. This is to replace 05/08 Rx BUPROPION HCL XL 300 MG TABLET TAKE 1 TABLET(300 MG) BY MOUTH DAILY CONCRETE SAW OPERATOR - Active OneTouch Verio Flex Meter for once daily use - Active OneTouch Verio test strips for once daily testing - Active OneTouch UltraSoft Lancets for once daily testing - Active Ambien 10 mg tablet take 1 tablet by oral route every day at bedtime 10 MG - Active Procedures Procedure Date URINALYSIS, DIPSTICK (UA) - Office Lab S SYST BP >= 140 MM HG6 IT DIAST BP 80-89 MM HG OFFICE [id number] BODY MASS INDEX DOCD SYST BP >= 140 MM HG6 IT DIAST BP 80-89 MM HG IMMUN ADMIN (INC PERCUTANEOUS) SINGLE, F IRST INJ FLU VAC NO PRSV 4 MARK, 0.5mL DOSAGE OFFICE [id number] BODY MASS INDEX DOCD SYST BP >= 140 MM HG6 IT DIAST BP >= 90 MM HG Pt inelig neg scrn depres OFFICE [id number] BODY MASS INDEX DOCD SYST BP GE 130 - 139MM HG DIAST BP >= 90 MM HG ROUTINE VENIPUNCTURE OFFICE [id number] BODY MASS INDEX DOCD SYST BP LT 130 MM HG DIAST BP 80-89 MM HG Pt inelig neg scrn depres OFFICE [id number] BODY MASS INDEX DOCD SYST BP >= 140 MM HG6 IT DIAST BP 80-89 MM HG IMMUN ADMIN (INC PERCUTANEOUS) SINGLE, F IRST INJ FLU VAC NO PRSV 4 MARK, 0.5mL DOSAGE CBC, INC PLATELETS AND DIFFERENTIAL COMPREHEN METABOLIC PANEL CMP 0 HEMOGLOBIN A1C HGA1C, GLYCO LIPID PANEL ROUTINE VENIPUNCTURE Brief Emotional/Behavioral A ssessment, With Scoring/Doct, Per Stndrd Instrument Pt inelig neg scrn depres HEALTH RISK ASSESSMENT, PATIENT-FOCUSED OFFICE [id number] BODY MASS INDEX DOCD SYST BP LT 130 MM HG DIAST BP 80-89 MM HG Advance Directives Directive Yes / No Effective Date File Name No Information Encounters Encounter Description Practice Location Reason(s) For Visit Diagnoses Date Provider Providers Copied on Encounter [facility], [address], [place], [place], [address] , [place] tel: [phone] [facility] No Information 2 Julio Mario er. [address], [address], [place], [place], [address] , [place]. tel: [phone] [facility], [address], [place], [place], [address] , [place] tel: [phone] [facility] UTI symptoms 2 Normlaney Mario er. [address], [address], [place], [place], [address] , [place]. tel: [phone] Referring Provider: Manjinder Kim, [address], [place], [address]. tel:[phone] [facility], [address], [place], [place], [address] , tel: [phone] [facility] No Information 2 Julio Mario er. [address], [address], [place], [place], [address] , [place]. tel: [phone] [facility], [address], [place], [place], [address] , [place] tel: [phone] [facility] No Information 2 Asadlaney Mario er. [address], [address] [place], [place], [place], [address] , [place]. tel: [phone] [facility], [address], [place], [place], [address] , [place] tel: [phone] [facility] No Information 2 Julio Mario er. [address], [address] [place], [place], [place], [address] , [place]. tel: [phone] OFFICE [id number] TAILED [facility], [address], [place], [place], [address] , [place] tel: [phone] [facility] Hypertension (chief complaint)ost eomyelitis (chief complaint)dep ression (chief complaint)Chr onic Conditions (chief complaint) Chronic multifocal osteomyelitis of foot, unspecified lateralityBenign essential hypertensionType 2 diabetes mellitus with foot ulcer, without long-term current use of insulinNon-press ure chronic ulcer of other part of unspecified foot with unspecified severityChronic, continuous use of opioids Dec- 1 Julio Mario er. [facility] [address], [address], [id number] , . [phone] Referring Provider: Mnajinder Kim, [address] [place] [address] [address], [place], [address]. tel:[phone] [facility], [address], [place], [place], [address] , tel: [phone] [facility] No Information 0 1 Julio Mario er. [address] [place] [address], [address], [id number] , . tel:[phone] OFFICE [id number]-OSC-QH [facility], [address], [place], [place], [address] , [place] tel: [phone] [facility] Chronic Conditions (chief complaint) Essential (primary) hypertensionMorb id (severe) obesity due to excess caloriesRecurren t major depression in complete remissionNeuropa thic ulcer of foot, unspecified laterality, unspecified ulcer stageStasis dermatitis with ulcer of left lower extremity due to peripheral venous hypertensionNeur opathic pain Sep-2 1 Julio Mario er. [address], [address], [place], [place], [address] , [place]. [phone] Referring Provider: Manjinder Kim, [address] [place] [address] [address] [place], [place], [address]. tel:[phone] OFFICE LLAFW-YUX-BX [facility], [address], [place], [place], [address] , tel: [phone] [facility] Neuropathy (chief complaint)Claire betes (chief complaint)Leg edema (chief complaint) Neuropathic ulcer of foot, unspecified laterality, unspecified ulcer stageNon-pressur e chronic ulcer of unspecified part of left lower leg with unspecified severityLeg edemaIdiopathic small fiber peripheral neuropathyStasis dermatitis of both legsType 2 diabetes mellitus with foot ulcer, without long-term current use of insulinErythrocy tosis 1 Normile Fabiano er. [address], [address], [place], [place], [address] , . tel:[phone] Referring Provider: Manjinder Kim, [address] [place] [address] [address], [place], [address]. tel:[phone] OFFICE [id number]-UA TAILED [facility], [address], [place], [place], [address] , tel: [phone] [facility] Edema/stasis dermatitis (chief complaint) Stasis dermatitis of both legsLeg edemaNeuropathic ulcer of foot, unspecified laterality, unspecified ulcer stageIdiopathic small fiber peripheral neuropathy 0 Normile Fabiano er. [address] [place] [address], [address], [place], [place], [address] , [place]. tel:[phone] Referring Provider: Manjinder Kim, [address] [place] [address] [address] [place], [place], [address]. tel:[phone] [facility], [address], [place], [place], [address] , tel: [phone] [facility] Idiopathic small fiber peripheral neuropathyBilate ral leg edema 0 Normile Fabiano er. [facility], [address], [place], [place], [address] , [place]. tel:[phone] OFFICE [id number]-BZ TAILED [facility], [address], [place], [place], [address] , tel: [phone] [facility] Hypertension (chief complaint) Essential (primary) hypertensionStas is dermatitis with ulcer of left lower extremity due to peripheral venous hypertensionNon- pressure chronic ulcer of unspecified part of left lower leg with unspecified severityNeuropat hic pain 0 Julio Mario er. [address] [place] [address], [address], [place], [place], [address] , . tel:[phone] Referring Provider: Manjinder Kim, [address] [place] [address], [place], [address]. tel:[phone] OFFICE [id number]-BYB-ZX [facility], [address], [place], [place], [address] , tel: [phone] [facility] acute problem (chief complaint)Chr onic Conditions (chief complaint) Chronic, continuous use of opioidsEssential (primary) hypertensionPre- diabetesElevated white blood cell count, unspecifiedRecur rent major depression in complete remissionStasis dermatitis of both legsNeuropathic ulcer of foot, unspecified laterality, unspecified ulcer stageNeuropathic painEncntr screen mammogram for malignant neoplasm of breastIdiopathic small fiber peripheral neuropathyMorbid (severe) obesity due to excess caloriesEncounte r for screening for other disorder 0 Julio Mario er. [address] [place] [address], [place] [address], [place], [place], [address] , . tel:[phone] Referring Provider: Manjinder Kim, [address] [place] [address], [place], [address]. tel:[phone] [facility], [address], [place], [place], [address] , tel:[phone] [facility] No Information 0 Julio Mario er. [address] [place] [address], [place] [address], [place], [place], [address] , . tel:[phone] Family History Family Member Type Diagnosis Age At Onset No Information Immunizations Vaccine Date Status Comments Fluzone Quad, preservative free, split virus, 0.5mL dosage administered Source: New Immuniza tion Record Moderna COVID19 Vaccine, 0.5 mL per dose, 2 doses, administered 28 days apart administered Source: Publi c Agency Moderna COVID19 Vaccine, 0.5 mL per dose, 2 doses, administered 28 days apart administered Source: Other Provider Fluzone Quad, preservative free, split virus, 0.5mL dosage administered Source: New Immuniza tion Record Fluzone Quad, preservative free, split virus, 0.5mL dosage administered Source: Other Provid er Td (adult) absorbed and preservative free administered Source: Other Provid er Payers Payer name Insurance type Covered green party ID Authoriza tion(s) [employer] [facility] [id number] [facility] [id number] Social History Type Description Quantity Date Captured Comments Sex Female Smoking Status No Information Chief Complaint And Reason For Visit No Information Reason For Referral Reason For Referral No Information Plan Of Treatment Date Type Action Status Referral Ordered: Arterial Doppler ultrasound of both lower extremities with measurement of segmental pressure Bilateral leg ordered Referral Ordered: SCREENING MAMMOGRAM (CAD) Bilateral breast ordered Future Order: Radiology Order Ar terial Doppler ultrasound of both lower extremities with measurement of segmental pressure Bilater ([id number]), Body Site: leg, Sent on: Sent Future Order: Radiology Order SC REENING MAMMOGRAM (CAD) Bilateral breast ([id number]), Body Site: breast, Sent on: Sent History Of Present Illness Encounter Date Complaint History Of Prese nt Illness osteomyelitis following w/ ID and podiatry for rhina osteomyelitis. Vascular studies reported as normal in hospital. Pain is better. Chronic Conditions *See Chronic Conditions HPI depression Additional infor mation: started on cymbalta for depression. Sx are much better, and in part were reactive to medical condition. Following w/ psychiatry. Hypertension Risk factors inc lude obesity. Additional information: started on coreg in hospital. BP at home was 140/90 at home prior to admission Chronic Conditions *See Chronic Conditions HPI Leg edema her leg swelling is much better on the Lasix. She does have some persistent problems with itching and is having problems getting some ulcers on her left leg to heal. She is using hydrocortisone cream which does not seem to help much. Diabetes Risk factors inc lude: family history diabetes mellitus and obesity. Associated symptoms include: burning of extremities, dysesthesias - numbness, tingling, burning and sharp pain, foot ulcers and slow healing wounds/sores. Pertinent negatives include chest pain, diarrhea and polydipsia. Additional information: she is seeing podiatry for diabetic foot ulcers.. Neuropathy Associated sympt oms include nocturnal paresthesias and paresthesia. Pertinent negatives include ataxia, bladder incontinence, bowel dysfunction, dysphagia and motor weakness. Additional information: sx are well controlled. No progression. Edema/stasis dermatitis signific ant improvement in ankle swelling and itching legs. Increased urination is significant and she does not want to further increase dose. No muscle cramps. No SOB. continues to see podiatry for foot ulcer. Hypertension Risk factors inc lude obesity. Pertinent negatives include chest pain, diaphoresis, dyspnea, irregular heartbeat/palpitations and visual disturbances. Additional information: leg swelling better on lasix than hctz.. BP at home <140/90. acute problem Seeing Dr Mcfadden (rf design engineer) for foot ulcers for last 6 months. So far has not needed abx. H/o osteomyelitis in L foot w/ metatarsal amputation. H/o chronic idiopathic peripheral neuropathy and has seen multiple neurologists and pain management specialists. Sx started 10 yr ago w/ toe numbness progressing to foot pain. Gabapentin and Lyrica helped initially. Has tried multiple opioids, and current regimen has worked well for years at this dose. she does not feel sores or injuries. neuropathy involves feet up to lower leg/ankle areas. Extensive w/u by Dr Osei at [facility]. Notes reviewed today. She now sees Dr Rome, but hasn't f/u in 2 years.[facility] labs reviewed. EMG/ncv was normal. US ANKLE PRESSURE INDEX [[id number]] ( (Order [id number])ResultsNormalStatus: Final result (Resulted: 10/12/2011 06:56)Patient InformationPatient Name Sandra Hernandez Sex Female 1970Exam InformationStatus Exam Begun Exam Ended Final [[id number]] 10/09/2011 10:11 10/09/2011 10:55Study ResultPROCEDUREUS ankle brachial index I NDICATIONSThe patient complains of constant pain in the feet and ankles bilaterally. The patient has idiopathic peripheral neuropathy. The patient is a current smoker who suffers from hypertension but denies coronary artery disease or diabetes. P Melissa systolic blood pressure and Doppler waveforms were obtained of both lower extremities. The ankle brachial index is greater than 1 on the right and 0.82 on the left. The first toe pressure is 115 on the right and 120 on the left. The waveforms are triphasic bilaterally. IMPRESSIONMinimal decrease in the ankle brachial index on the left consistent with very mild arterial insufficiency. There is normal perfusion of the right lower extremity. It is unlikely that the patient's constant pain is due to arterial insufficiency. Chronic Conditions *See Chronic Conditions HPI Functional Status Date Functional Assessmen t No Information Instructions Date Instruction Additional Infor matacacia Per podiatry and ID specialists Related to Chronic multifocal osteomyelitis of foot, unspecified laterality per rf design engineer. Related to Non-p ressure chronic ulcer of other part of unspecified foot with unspecified severity Continue current care Related to Type 2 diabetes mellitus with foot ulcer, without long-term current use of insulin Continue current care Related to Benign essential hypertension Started on duloxetin e for depression. Needs refill until she can see her psychiatrist. Will continue that and BID MS contin. Related to Chronic, continuous use of opioids eloy will continue cu rrent pain management. She is stable on her opioid medication use, and is getting reasonable pain control. We reviewed the addictive and is of the opioids that she is taking. She expresses understanding, and wants to continue her current regimen Related to Neuropathic pain She has not been usi ng the hydrocortisone cream. We discussed the importance of daily use to reduce itching and subsequent scratching. Need to avoid skin injuries. We discussed skin care at length as well. Related to Stasis dermatitis with ulcer of left lower extremity due to peripheral venous hypertension Pulses are diminishe d and severe neuropathy. We will arrange for vascular Dopplers and lower extremities. Continue podiatry care. Related to Neuropathic ulcer of foot, unspecified laterality, unspecified ulcer stage Continue current car e, Wellbutrin XL 300 mg daily. Related to Recurrent major depression in complete remission We discussed importa nce of diet and exercise, weight loss. Reviewed health benefits Related to Morbid (severe) obesity due to excess calories We will try switchin g from losartan to valsartan 320 mg daily. We discussed the importance of medication compliance, and risk of inadequately controlled hypertension. Monitor BP at home 2-5 times a week in morning. Record results, call results and average results to office in 2 weeks. Bring results and BP cuff with you to next visit. Related to Essential (primary) hypertension we will recheck CBC. Consider pulmonary consult, and/or further testing for malignancy. Related to Erythrocytosis new diagnosis of typ e 2 diabetes. We discussed at length the risks of type 2 diabetes, complications etc. We discussed the importance of continued podiatry care for her foot ulcer. Discussed importance of yearly eye exams. Discussed home glucose monitoring. Will refer her for dietitian/hot metal charger consultation. Related to Type 2 diabetes mellitus with foot ulcer, without long-term current use of insulin continue Lasix. Related to Leg e bri as above Related to Stasi s dermatitis of both legs continue pain manage ment. Will recheck UPEP and SPEP due to recent elevated globulin levels and chronic neuropathy. Related to Idiopathic small fiber peripheral neuropathy continue podiatry care. Related to Neuropathic ulcer of foot, unspecified laterality, unspecified ulcer stage continue podiatry ca re. Elevated protein levels noted recently. Previous serum protein electrophoresis test had been normal. Will recommend repeating. Related to Idiopathic small fiber peripheral neuropathy reviewed skin care. Hydrocortisone for itching. Aquaphor for skin conditioning. Related to Stasis dermatitis of both legs continue podiatry care Related t o Neuropathic ulcer of foot, unspecified laterality, unspecified ulcer stage she does not want to increase diuretics. Encouraged keeping her feet up, reducing sodium intake and exercise. she did not check electrolytes as previously ordered. She will do that today. Related to Leg edema Continue current care Related to Neuropathic pain as above. keep wound covered w/ aquaphor BID Related to Non-pressure chronic ulcer of unspecified part of left lower leg with unspecified severity increase lasix to 40 mg. Discussed lifestyle changes, elevating legs, reducing sodium and losing weight. Discussed wound care. she declines stockings. Related to Stasis dermatitis with ulcer of left lower extremity due to peripheral venous hypertension Monitor BP at home 2 -5 times a week in morning. Record results, call results and average results to office in 2 weeks. Bring results and BP cuff with you to next visit. Related to Essential (primary) hypertension continue podiatry care. Related to Neuropathic ulcer of foot, unspecified laterality, unspecified ulcer stage add lasix. monitor K+ Related to Stasis dermatitis of both legs refer bar machine operator production. Related to Pre- diabetes recheck labs. Related to Shante carmichael white blood cell count, unspecified BP controlled w/ current regimen . Related to Essential (primary) hypertension Continue current care Related to Recurrent major depression in complete remission follow up w/ neurology Related t o Idiopathic small fiber peripheral neuropathy Continue current care Related to Neuropathic pain Refer to bar machine operator production. Discussed benefits of wt loss. Related to Morbid (severe) obesity due to excess calories Continue current car e. Discussed risks of high dose opioids at length. offered pain mgmt referral, which she declines. Related to Chronic, continuous use of opioids Assessments Type Assessment Date No Information Patient Care Teams Name Effective Dates (start - stop) Status Members No Information
--- OUTSIDE RECORDS SUMMARY | 2024-03-31 16:53 | XMS_ITS | Encounter Summary ---
Author Organization [facility] Address [facility] [place] [address] Care Team Providers Care Aids Social Worker Name Role Phone George Butler MD Primary Care Provider [phone] Apollo Pearce MD Primary Care Provider [phone] Reason for Referral * Surgical (Routine) - Closed Specialty Diagnoses / Procedures Referred By Contac t Referred To Contact Diagnoses Osteomyelitis of left foot ([facility]) Procedures Case request operating room: AMPUTATION BELOW KNEE (LEFT LEG) [place] [address] Phone: tel: fax: Referral ID Status Reason Start Date Expiration Date Visits Re quested Visits Authorized [id number] Closed 07/31/2022 08/01/2023 1 1 * Surgical (Routine) - Closed Specialty Diagnoses / Procedures Referred By Contac t Referred To Contact Diagnoses Osteomyelitis of left foot ([facility]) Procedures Case request operating room: FOOT AMPUTATION (LEFT FOOT) Tee Pinzon MD [address] [address] Phone: tel: fax: Referral ID Status Reason Start Date Expiration Date Visits Re quested Visits Authorized [id number] Closed 07/31/2022 08/01/2023 1 1 Encounter Details Date Type Department Care Team (Late st Contact Info) Description 07/31/2022 Prep for Procedure [facility], [place] [address] [place], [place] [id number] Tee Pinzon MD [facility]. [address] [place], [place] [id number] Social History Tobacco Use Types Packs/Day Years Used Date Smoking Tobacco: Former Cigarettes Smokeless Tobacco: Never Alcohol Use Standard Drinks/Week Comments Not Currently 0 (1 standard drink = 0.6 oz pur e alcohol) Humiliation, Afraid, Rape, and Kick questionnair e Answer Date Recorded Within the last year, have y ou been afraid of your partner or ex-partner? No 07/31/2022 Within the last year, have y ou been humiliated or emotionally abused in other ways by your partner or ex-partner? No Within the last year, have y ou been kicked, hit, slapped, or otherwise physically hurt by your partner or ex-partner? No 07/31/2022 Within the last year, have y ou been raped or forced to have any kind of sexual activity by your partner or ex-partner? No 07/31/2022 Social Connection and Isolat ion Panel [NHANES] Answer Date Recorded In a typical week, how many times do you talk on the phone with family, friends, or neighbors? More than three times a week 07/17/2022 How often do you get togethe r with friends or relatives? Once a week 07/17/2022 How often do you attend [facility] or mosque services? Never 07/17/2022 Do you belong to any clubs o r organizations such as anabaptist groups, unions, fraternal or athletic groups, or school groups? No 07/17/2022 How often do you attend meet ings of the clubs or organizations you belong to? Never 07/17/2022 Marital Status Not on file 07/17/2022 AUDIT-C Answer Date Recorded Q1: How often do you have a drink containing alc ohol? Monthly or less 07/17/2022 Q2: How many drinks containi ng alcohol do you have on a typical day when you are drinking? 1 or 2 07/17/2022 Q3: How often do you have si x or more drinks on one occasion? Never 07/17/2022 Overall Financial Resource Strain (CARDIA) Answe r Date Recorded How hard is it for you to pa y for the very basics like food, housing, medical care, and heating? Not hard at all 07/31/2022 PHQ-2 Answer Date Recorded Patient Health Questionnaire-2 Score 0 07/30/2022 [facility] - Occupational Stress Questionnaire Answer Date Recorded Do you feel stress - tense, restless, nervous, or anxious, or unable to sleep at night because your mind is troubled all the time - these days? Not at all 07/17/2022 Exercise Vital Sign Answer Date Recorde d On average, how many days pe r week do you engage in moderate to strenuous exercise (like a brisk walk)? 2 days 07/17/2022 On average, how many minutes do you engage in exercise at this level? 20 min 07/17/2022 Hunger Vital Sign Answer Date Recorded Within the past 12 months, y ou worried that your food would run out before you got the money to buy more. Never true 08/01/19 23 Within the past 12 months, t he food you bought just didn't last and you didn't have money to get more. Never true 07/31/2022 PRAPARE - Transportation Answer Date Re corded In the past 12 months, has l ack of transportation kept you from medical appointments or from getting medications? No 10/2022 In the past 12 months, has l ack of transportation kept you from meetings, work, or from getting things needed for daily living? No 07/31/2022 Housing Stability Vital Sign Answer Wilbur e Recorded In the last 12 months, was t here a time when you were not able to pay the mortgage or rent on time? No 07/31/2022 In the last 12 months, how many places have you lived? 1 07/31/2022 In the last 12 months, was t here a time when you did not have a steady place to sleep or slept in a longterm (including now)? No 07/31/2022 Comments No Sex and Gender Information Value Date Recorded Sex Assigned at Female 12/18/2023 11:50 PM CDT Legal Sex Female 7:37 PM CDT Gender Identity Female 12/18/2023 11:50 PM CDT Sexual Orientation Straight 12/18/2023 11 :50 PM CDT COVID-19 Exposure Response Date Recorded In the last 10 days, have yo u been in contact with someone who was confirmed or suspected to have Coronavirus/COVID-19? No / Unsure 07/30/2022 6:57 PM CDT documented as of this encounter Functional Status * Question Answer Date of Assessment Author Status Do you have serious difficulty walking or climbing stairs? Yes 07/31/2022 4:12 PM CDT Katiuska Yi RN Acti ve * Question Answer Date of Assessment Author Status Do you have difficulty dressing or bathing? No 07/31/2022 4:12 PM CDT Katiuska Yi RN Active Because of a physical, mental, or emotional condition, do you have difficulty doing errands alone such as visiting a doctor's office or shopping? No 07/31/2022 4:12 PM CDT Lupillo Yi RN Active * Are you deaf or do you have serious difficulty hearing Answer Date of Assessment Author Status No 07/31/2022 4:12 PM CDT Katiuska Yi R N Active * Are you blind or do you have serious difficulty seeing, even when wearing glasses? Answer Date of Assessment Author Status No 07/31/2022 4:12 PM CDT Katiuska Yi R N Active * Do you have serious difficulty walking or climbing stairs? Answer Date of Assessment Author Status Yes 07/31/2022 4:12 PM CDT Katiuska Yi R N Active * Do you have difficulty dressing or bathing? Answer Date of Assessment Author Status No 07/31/2022 4:12 PM CDT Katiuska Yi R N Active * Because of a physical, mental, or emotional condition, do you have difficulty doing errands alone such as visiting a doctor's office or shopping? Answer Date of Assessment Author Status No 07/31/2022 4:12 PM CDT Katiuska Yi R N Active documented as of this encounter Mental Status * Question Answer Entry Date Author Status Because of a physical, mental, or emotional condition, do you have serious difficulty concentrating, remembering, or making decisions? No 07/31/2022 4:12 PM Katiuska Galeas, RN Active * Because of a physical, mental, or emotional condition, do you have serious difficulty concentrating, remembering, or making decisions? Answer Entry Date Author Status No 07/31/2022 4:12 PM Katiuska Galeas, R N Active documented in this encounter Plan of Treatment Scheduled Orders Name Type Priority Associated Diagnoses Orde r Schedule Case request operating room: FOOT AMPUTATION (LEFT FOOT) Case Request Routine Osteomyelitis of left foot ([facility]) Once for 1 Occurrences starting 07/31/2022 until 07/31/2022 Case request operating room: AMPUTATION BELOW KNEE (LEFT LEG) Case Request Routine Osteomyelitis of left foot ([facility]) Once for 1 Occurrences starting 07/31/2022 until 07/31/2022 documented as of this encounter Goals Goal Patient Goal Type Associated Problems Recent Progress Patient-Stated? Author Patient will return to prior living situation and remain independent in ADLs upon discharge from hospital Lifestyle No Pooja Ortega RN documented as of this encounter Visit Diagnoses Diagnosis Osteomyelitis of left foot ([facility])- Primary Unspecified osteomyelitis, ankle and foot documented in this encounter Additional Health Concerns Infection Onset Date Last Indicated Resolved Time MRSA Comment:11/23/17 +MRSA skin lesion from [employer] [facility] 01/08/22 left foot (TH) 07/17/22 +MRSA Left foot 12/18/23 +MRSA Right foot 01/10/2022 12/18/2023 documented as of this encounter Care Teams Aids Social Worker Relationship Specialty Start Date End Date George Butler MD [address] [place] [phone] PCP - General FAMILY PRACTICE 07/21/22 11/18/22 Apollo Pearce MD [address] [place] [phone] PCP - General HOSPITALIST 10/11/23 documented as of this encounter
--- OUTSIDE RECORDS SUMMARY | 2024-03-31 16:53 | XMS_ITS | Encounter Summary ---
Author Organization [facility] Address [facility] [place] [address] Care Team Providers Care Pulvi Mixer Operator Name Role Phone Apollo Pearce MD Primary Care Provider [phone] Reason for Referral * Surgical (Routine) - New Request Specialty Diagnoses / Procedures Referred By Juan jones Referred To Contact Diagnoses Osteomyelitis of right foot ([facility] H[facility]/H[facility]) Procedures Case request operating room: DEBRIDEMENT WOUND (right foot) Tee Pinzon MD [id number] [place] [address] Phone: tel: fax: Referral ID Status Reason Start Date Expiration Date V isits Requested Visits Authorized [id number] New Request 12/20/2023 12/19/2024 1 1 Encounter Details Date Type Department Care Team (Late st Contact Info) Description 12/20/2023 Prep for Procedure [facility] [address] [place], [place] [id number] Tee Pinzon MD [facility] [address] [place] [address] Social History Tobacco Use Types Packs/Day Years Used Date Smoking Tobacco: Every Day Cigarettes Smokeless Tobacco: Never Alcohol Use Standard Drinks/Week Comments Not Currently 0 (1 standard drink = 0.6 oz pur e alcohol) OASIS D0700: Social Isolation Answer Da te Recorded Frequency of experiencing loneliness or isolatio n Never 12/24/2023 OASIS A1250: Transportation Answer Date Recorded Lack of Transportation (Medical) No 12/24/2023 Lack of Transportation (Non-Medical) No 12/24/2023 Patient Unable or Declines to Respond No 12/24/2023 OASIS B1300: Health Literacy Answer Wilbur e Recorded Frequency of needing help to read materials from doctor or pharmacy Rarely 12/24/2023 [facility] Utilities Answer Date Recorded In the past 12 months has th e [employer], [employer], oil, or water [employer] threatened to shut off services in your home? No 12/20/2023 Humiliation, Afraid, Rape, and Kick questionnair e Answer Date Recorded Within the last year, have y ou been afraid of your partner or ex-partner? No 12/20/2023 Within the last year, have y ou been humiliated or emotionally abused in other ways by your partner or ex-partner? No Within the last year, have y ou been kicked, hit, slapped, or otherwise physically hurt by your partner or ex-partner? No 12/20/2023 Within the last year, have y ou been raped or forced to have any kind of sexual activity by your partner or ex-partner? No 12/20/2023 Social Connection and Isolat ion Panel [NHANES] Answer Date Recorded In a typical week, how many times do you talk on the phone with family, friends, or neighbors? More than three times a week 07/17/2022 How often do you get togethe r with friends or relatives? Once a week 07/17/2022 How often do you attend [facility] or cheondoism services? Never 07/17/2022 Do you belong to any clubs o r organizations such as buddhist groups, unions, fraternal or athletic groups, or [...] food, housing, medical care, and heating? Not very hard 12/20/2023 PHQ-2 Answer Date Recorded Patient Health Questionnaire-2 Score 0 07/30/2022 [facility] - Occupational Stress Questionnaire Answer Date Recorded [...] the money to buy more. Never true 12/20/19 Within the past 12 months, t he food you bought just didn't last and you didn't have money to get more. Never true 12/20/2023 PRAPARE - Transportation Answer Date Re corded In the past 12 months, has l ack of transportation kept you from medical appointments or from getting medications? No 11/23 In the past 12 months, has l ack of transportation kept you from meetings, work, or from getting things needed for daily living? No 12/20/2023 Housing Stability Vital Sign Answer Wilbur e Recorded In the last 12 months, was t here a time when you were not able to pay the mortgage or rent on time? No 11/21/2022 In the last 12 months, how many places have you lived? 1 11/21/2022 In the last 12 months, was t here a time when you did not have a steady place to sleep or slept in a residential (including now)? No 11/21/2022 Housing Stability Vital Sign Answer Wilbur e Recorded In the last 12 months, was t here a time when you were not able to pay the mortgage or rent on time? No 12/20/2023 In the past 12 months, how m any times have you moved where you were living? 1 12/20/2023 At any time in the past 12 m [facility], were you homeless or living in a residential (including now)? No 12/20/2023 Comments No Sex and Gender Information Value Date Recorded Sex Assigned at Female 12/18/2023 11:50 PM CDT Legal Sex Female 7:37 PM CDT Gender Identity Female 12/18/2023 11:50 PM CDT Sexual Orientation Straight 12/18/2023 11 :50 PM CDT documented as of this encounter Functional Status * Are you deaf or do you have serious difficulty hearing Answer Date of Assessment Author Status No 12/19/2023 12:15 AM CDT Lima Galaviz RN Active * Are you blind or do you have serious difficulty seeing, even when wearing glasses? Answer Date of Assessment Author Status No 12/19/2023 12:15 AM EUGENIAT Lima Galaviz RN Active * Do you have serious difficulty walking or climbing stairs? Answer Date of Assessment Author Status No 12/19/2023 12:15 AM CDT Lima Galaviz RN Active * Do you have difficulty dressing or bathing? Answer Date of Assessment Author Status No 12/19/2023 12:15 AM CDT Lima Galaviz RN Active * Because of a physical, mental, or emotional condition, do you have difficulty doing errands alone such as visiting a doctor's office or shopping? Answer Date of Assessment Author Status No 12/19/2023 12:15 AM EUGENIAT Lmia Galaviz RN Active documented as of this encounter Mental Status * Because of a physical, mental, or emotional condition, do you have serious difficulty concentrating, remembering, or making decisions? Answer Entry Date Author Status No 12/19/2023 12:15 AM Lima Solo RN Active documented in this encounter Plan of Treatment Scheduled Orders Name Type Priority Associated Diagnoses Orde r Schedule Case request operating room: DEBRIDEMENT WOUND (right foot) Case Request Routine Osteomyelitis of right foot ([facility]) Once for 1 Occurrences starting 12/20/2023 until 12/20/2023 documented as of this encounter Goals Goal Patient Goal Type Associated Problems Recent Progress Patient-Stated? Author Patient will return to prior living situation and remain independent in ADLs upon discharge from hospital Lifestyle No Pooja Ortega RN documented as of this encounter Visit Diagnoses Diagnosis Osteomyelitis of right foot ([facility])- Primary Unspecified osteomyelitis, ankle and foot documented in this encounter Additional Health Concerns Infection Onset Date Last Indicated Resolved Time MRSA Comment:11/23/17 +MRSA skin lesion from [facility] 01/08/22 left foot (TH) 07/17/22 +MRSA Left foot 12/18/23 +MRSA Right foot 01/10/2022 12/18/2023 documented as of this encounter Care Teams Pulvi Mixer Operator Relationship Specialty Start Date End Date Apollo Pearce MD [address] [place] [phone] PCP - General HOSPITALIST 10/11/23 documented as of this encounter
--- OUTSIDE RECORDS SUMMARY | 2024-03-31 16:53 | XMS_ITS | Clinical Summary ---
Author Organization [facility] Address [address] [place] [address] Care Team Providers Care Manager Latin Name Role Phone Apollo Pearce MD Primary Care Provider [phone] Allergies Active Allergy Reactions Criticality Noted Date Comments Metformin GI Upset High 10/08/2023 Medications amLODIPine (NORVASC) 10 MG tabletIndicatio ns:Hypertension Take 1 tablet (10 mg total) by mouth daily. Indications: High Blood Pressure 30 tablet 4 Active buPROPion XL (WELLBUTRIN XL) 300 MG 24 hr tabletIndicatio ns:Depression Take 1 tablet (300 mg total) by mouth daily. Indications: Depression 30 tablet 4 Active gabapentin (NEURONTIN) 300 MG capsuleIndicati ons:Neuropathy Take 1 capsule (300 mg total) by mouth 3 (three) times daily. Indications: Nerve Disease 90 capsule 4 Active losartan (COZAAR) 50 MG tabletIndicatio ns:Hypertension Take 1 tablet (50 mg total) by mouth daily. Indications: High Blood Pressure 30 tablet 4 Active traZODone (DESYREL) 100 MG tabletIndicatio ns:Insomnia Take 1 tablet (100 mg total) by mouth nightly at bedtime. Indications: Trouble Sleeping 30 tablet 4 Active Active Problems Problem Noted Date Diagnosed Date Osteomyelitis of right foot ([facility]) Cellulitis 10/11/2023 Cellulitis and abscess of right leg 10/08/2023 Hypokalemia 11/19/2022 Syncope 07/30/2022 Osteomyelitis of foot, left, acute ([facility]) 01/22/2022 Diabetic foot ulcer ([facility]) 01/08/2022 Pre-diabetes 06/18/2017 Major depressive disorder wi th single episode, in full remission 10/06/2016 Morbid obesity due to excess calories ([facility]) 10/06/2016 Constipation due to opioid therapy 07/07/2015 Chronic, continuous use of opioids 07/05/2015 Neuropathy 09/24/2012 Overview (01/09/2022): Unspecified autoimmune neuropathy, involving both large and small fibers. Dr Rome. Neuropathic pain 05/18/2011 Hypertension 01/30/2011 Paresthesia of both legs 01/30/2011 Fatty infiltration of liver 12/01/2010 Allergic rhinitis 06/05/2008 Resolved Problems Problem Noted Date Diagnosed Date Resolved Date Osteomyelitis of ankle or fo ot, acute, right ([facility]) 12/19/2023 2023 Bacteremia 07/30/2022 10/11/2023 Osteomyelitis ([facility]) 07/17/2022 2023 Leukocytosis (leucocytosis) 03/05/2019 10/11/2023 Encounters Date Type Department Care Team Description 02/09/2024 9:00 AM FIRE RANGE TECHNICIAN Home Care Visit [address] [place] [address] [place] [address] Toshia Bejarano RN SN OASIS DISCHARGE/ASSESSMEN T 02/08/2024 1:00 PM FIRE RANGE TECHNICIAN Office Visit [facility] - [facility] [address] [facility], [address] [address] Venita Dean NP Osteomyelitis (R foot infection) 02/08/2024 Travel 02/07/2024 1:38 PM FIRE RANGE TECHNICIAN - 02/07/2024 11:59 PM FIRE RANGE TECHNICIAN Hospital Encounter [facility] [address] [facility] [place] [address] Andrew Eddy MD Discharge Disposition: Home or Self Care (Routine Discharge) 02/07/2024 9:45 AM FIRE RANGE TECHNICIAN Home Care Visit [address] [place] [address] [place] [address] Toshia Bejarano, RN SN HOME VISIT 02/07/2024 Orders Only [facility] [address] [facility] [place] [address] Andrew Eddy MD 02/04/2024 12:45 PM FIRE RANGE TECHNICIAN Home Care Visit [facility] [address] [place] [address] [place] [address] Toshia Bejarano RN SN HOME PRN VISIT 02/04/2024 Telephone [facility] - [address] [phone] Venita Dean NP Medication Information 01/31/2024 4:18 PM FIRE RANGE TECHNICIAN - 01/31/2024 11:59 PM FIRE RANGE TECHNICIAN Hospital Encounter [facility] [address] [facility] [place] [address] Andrew Eddy MD Discharge Disposition: Home or Self Care (Routine Discharge) 01/31/2024 8:15 AM FIRE RANGE TECHNICIAN Home Care Visit [address] [place] [address] [place] [address] Toshia Bejarano RN SN HOME VISIT 01/31/2024 Orders Only [facility] [address] [facility] [place] [address] Andrew Eddy MD 01/26/2024 Telephone [facility] - [address], [facility] [address] [place] [phone] Venita Dean, CHRIS Reschedule 01/24/2024 4:46 PM FIRE RANGE TECHNICIAN - 01/24/2024 11:59 PM FIRE RANGE TECHNICIAN Hospital Encounter [facility] [address] [place] [address] Andrew Eddy MD Discharge Disposition: Home or Self Care (Routine Discharge) 01/24/2024 8:45 AM FIRE RANGE TECHNICIAN Home Care Visit [facility] [address] [place] [address] [place] [address] Toshia Bejarano RN SN HOME VISIT 01/24/[address] [facility] [address] [place] [address] Andrew Eddy MD 01/18/2024 Telephone [facility] - [facility] [address] [facility], [address] [phone] Venita Dean NP Orders 01/17/2024 1:55 PM FIRE RANGE TECHNICIAN - 01/17/2024 11:59 PM FIRE RANGE TECHNICIAN Hospital Encounter [facility] [address] [place] [address] Andrew Eddy MD Discharge Disposition: Home or Self Care (Routine Discharge) 01/17/2024 9:00 AM FIRE RANGE TECHNICIAN Home Care Visit [address] [place] [address] [place] [address] Toshia Bejarano RN SN HOME VISIT 01/17/2024 Orders Only [facility] [address] [place] [address] Andrew Eddy MD 01/10/2024 3:32 PM FIRE RANGE TECHNICIAN - 01/10/2024 11:59 PM FIRE RANGE TECHNICIAN Hospital Encounter [facility] [address] [place] [address] Andrew Eddy MD Discharge Disposition: Home or Self Care (Routine Discharge) 01/10/2024 9:00 AM FIRE RANGE TECHNICIAN Home Care Visit [address] [place] [address] [place] [address] Toshia Bejarano RN SN HOME VISIT 01/10/2024 Orders Only [facility] [address] [place] [address] Andrew Eddy MD 01/05/2024 [facility]phone [facility] [address] [facility], [facility] [address] [place] [address] Venita Dean NP Lab Results 01/04/2024 8:07 AM FIRE RANGE TECHNICIAN - 01/04/2024 11:59 PM FIRE RANGE TECHNICIAN Hospital Encounter [facility] [place] [address] Venita Dean NP Discharge Disposition: Home or Self Care (Routine Discharge) 01/04/2024 Travel 01/03/2024 4:42 PM FIRE RANGE TECHNICIAN - 01/03/2024 11:59 PM FIRE RANGE TECHNICIAN Hospital Encounter [facility] [address] [place] [address] Andrew Eddy MD Discharge Disposition: Home or Self Care (Routine Discharge) 01/03/2024 10:40 AM FIRE RANGE TECHNICIAN [facility] [address] [facility], [address] [phone] Venita Dean NP Osteomyelitis 01/03/2024 9:00 AM FIRE RANGE TECHNICIAN Home Care Visit [address] [place], [place] [id number] Toshia Bejarano RN SN HOME VISIT 01/03/2024 Orders Only [facility] [address] [place] [address] Andrew Eddy MD 01/03/2024 Travel from Last 3 Months Immunizations Name Administration Dates Next Due Fluzone (IIV3, Trivalent, 0. 5 ML Prefilled Syringe) 2023 Fluzone 6 Months+ Quad (0.5 mL Prefilled Syringe) 01/20/2022 Influenza (Generic) 12/03/2011 Influenza Adult (Generic) 12/07/2018,02/02/2017, 12/04/2014 Td (TDVAX) 02/22/2003 Tdap (Boostrix) 01/14/2022 Family History Medical History Relation Comments HIV Father Diabetes Mother Hypertension Mother Relation Status Comments Father Mother Alive Social History Tobacco Use Types Packs/Day Years Used Date Smoking Tobacco: Every Day Cigarettes Smokeless Tobacco: Never Tobacco Cessation:Ready to Q uit: Not Asked; Counseling Given: No Alcohol Use Standard Drinks/Week Comments Not Currently 0 (1 standard drink = 0.6 oz pur e alcohol) OASIS D0700: Social Isolation Answer Da te Recorded Frequency of experiencing loneliness or isolatio n Never 02/09/2024 OASIS A1250: Transportation Answer Date Recorded Lack of Transportation (Medical) No 02/09/2024 Lack of Transportation (Non-Medical) No 02/09/2024 Patient Unable or Declines to Respond No 02/09/2024 OASIS B1300: Health Literacy Answer Wilbur e Recorded Frequency of needing help to read materials from doctor or pharmacy Never 02/09/2024 [facility] Utilities Answer Date Recorded In the past 12 months has [employer], [employer], or water [employer] threatened to shut off services in your [...] week 07/17/2022 How often do you attend [facility] or druze services? Never 07/17/2022 Do you belong to any clubs o r organizations such as taoist groups, unions, fraternal or athletic groups, or [...] Date Recorded Patient Health Questionnaire-2 Score 0 02/08/2024 [facility] - Occupational Stress [...] money to buy more. Never true 12/20/19 24 Within the past 12 months, t he [...] place to sleep or slept in a retirement (including now)? No 11/21/2022 Housing Stability Vital Sign Answer Wilbur e Recorded In the last 12 months, was t here a time when you were not able to pay the mortgage or rent on time? No 12/20/2023 In the past 12 months, how m any times have you moved where you were living? 1 12/20/2023 At any time in the past 12 m [facility], were you homeless or living in a retirement (including now)? No 12/20/2023 Comments No Sex and Gender Information Value Date Recorded Sex Assigned at Female 12/18/2023 11:50 PM CDT Legal Sex Female 7:37 PM CDT Gender Identity Female 12/18/2023 11:50 PM CDT Sexual Orientation Straight 12/18/2023 11 :50 PM CDT Last Filed Vital Signs Vital Sign Reading Time Taken Comments Blood Pressure 164/90 02/08/2024 2:12 PM FIRE RANGE TECHNICIAN Pulse 106 02/08/2024 1:15 PM FIRE RANGE TECHNICIAN Temperature 36.8 C (98.2 F) 02/08/2024 1:15 PM FIRE RANGE TECHNICIAN Respiratory Rate 16 02/07/2024 10:15 AM FIRE RANGE TECHNICIAN Oxygen Saturation 98% 02/08/2024 1:15 PM FIRE RANGE TECHNICIAN Inhaled Oxygen Concentration - - Weight 112 kg (247 lb) 02/08/2024 1:15 PM FIRE RANGE TECHNICIAN Height 170.2 cm (5' 7 ) 02/08/2024 1:15 PM FIRE RANGE TECHNICIAN Body Mass Index 38.69 02/08/2024 1:15 PM FIRE RANGE TECHNICIAN Plan of Treatment Health Maintenance Due Date Last Done Comments Cervical Cancer Screening Pap Smear (Age 30 to 64) Every 3 Years 1972 Colorectal Cancer Screening Colonoscopy (10 Years) 1972 Kidney Health Evaluation 1972 Annual Physical 12/24/1975 Pneumococcal Vaccine: Pediatrics (0 to 5 Years) and At-Risk Patients (6 to 64 Years) (1 of 2 - PCV) 1978 Diabetes: Retinopathy Eye Exam 1990 Hepatitis C 1990 Hepatitis B Vaccines (1 of 3 - 19+ 3-dose series) 12/24/1991 Cervical Cancer Screening Pap with HPV Testing (Age 30 to 64) Every 5 Years 2002 Cervical Cancer Screening with HPV 2002 Mammogram Screening 2012 Zoster Vaccines (1 of 2) 2022 Lipid Panel 01/09/2023 01/09/2022 COVID-19 Vaccine (1 - season) 2023 PHQ-2 (Physician [place]) 02/23/2024 02/08/2024 Hemoglobin A1C 04/11/2024 10/10/2023, 06/23, 01/09/2022, Additional history exists PHQ-2 (Phys[facility] [place]) 02/07/2025 02/08/2024 DTaP, Tdap and Td Vaccines (2 - Td or Tdap) 01/15/2032 01/14/2022, 02/22/2003 Influenza Adult Completed 2023, 12/24, 12/07/2018, Additional history exists Meningococcal B Vaccine Aged Out No l onger eligible based on patient's age to complete this topic Meningococcal Vaccine Aged Out No denita porfirio eligible based on patient's age to complete this topic RSV Immunizations Under 20 Months Aged Out No longer eligible based on patient's age to complete this topic Goals Goal Patient Goal Type Associated Problems Recent Progress Patient-Stated? Author Patient will return to prior living situation and remain independent in ADLs upon discharge from hospital Lifestyle No Pooja Ortega, steel checker Procedure Name Priority Date/Time Associated Diagnosis Comments WBC WI DIFFERENTIAL TIMED 02/07/2024 1 :00 PM FIRE RANGE TECHNICIAN COMPREHENSIVE METABOLIC PANEL Routine 02/07/2024 11:00 AM FIRE RANGE TECHNICIAN Osteomyelitis ([facility]) CBC W/DIFF AUTOMATED Routine 02/07/2024 11:00 AM FIRE RANGE TECHNICIAN Osteomyelitis ([facility]) WBC WI DIFFERENTIAL TIMED 01/31/2024 9 :42 AM FIRE RANGE TECHNICIAN COMPREHENSIVE METABOLIC PANEL Routine 01/31/2024 9:42 AM FIRE RANGE TECHNICIAN Osteomyelitis (CMS/HCC HHS/HCC) VANCOMYCIN TROUGH Routine 01/31/2024 9:4 2 AM FIRE RANGE TECHNICIAN Osteomyelitis (CMS/HCC HHS/HCC) CBC W/DIFF AUTOMATED Routine 01/31/2024 9:42 AM FIRE RANGE TECHNICIAN Osteomyelitis (CMS/HCC HHS/HCC) COMPREHENSIVE METABOLIC PANEL Routine 01/24/2024 10:00 AM FIRE RANGE TECHNICIAN SAPHO syndrome (CMS/HCC HHS/HCC) VANCOMYCIN TROUGH Routine 01/24/2024 10: 00 AM FIRE RANGE TECHNICIAN SAPHO syndrome (CMS/HCC HHS/HCC) CBC W/DIFF AUTOMATED Routine 01/24/2024 10:00 AM FIRE RANGE TECHNICIAN SAPHO syndrome (CMS/HCC HHS/HCC) COMPREHENSIVE METABOLIC PANEL Routine 01/17/2024 9:34 AM FIRE RANGE TECHNICIAN Osteomyelitis (CMS/HCC HHS/HCC) CBC W/DIFF AUTOMATED Routine 01/17/2024 9:34 AM FIRE RANGE TECHNICIAN Osteomyelitis (CMS/HCC HHS/HCC) VANCOMYCIN TROUGH Routine 01/17/2024 9:3 4 AM FIRE RANGE TECHNICIAN Osteomyelitis (CMS/HCC HHS/HCC) COMPREHENSIVE METABOLIC PANEL Routine 01/10/2024 9:24 AM FIRE RANGE TECHNICIAN Inflammation of bone (CMS/HCC HHS/HCC) CBC W/DIFF AUTOMATED Routine 01/10/2024 9:24 AM FIRE RANGE TECHNICIAN Inflammation of bone (CMS/HCC HHS/HCC) VANCOMYCIN TROUGH Routine 01/10/2024 9:2 4 AM FIRE RANGE TECHNICIAN Inflammation of bone (CMS/HCC HHS/HCC) IR PICC PLC GREATER 5YR Routine 01/04/2024 9:17 AM FIRE RANGE TECHNICIAN Osteomyelitis (CMS/HCC HHS/HCC) HC BODY FLUID CULTURE Routine 01/04/2024 8:47 AM FIRE RANGE TECHNICIAN PICC line infection COMPREHENSIVE METABOLIC PANEL Routine 01/03/2024 2:30 PM FIRE RANGE TECHNICIAN Osteomyelitis ([facility] HHS/HCC) CBC W/DIFF AUTOMATED Routine 01/03/2024 2:30 PM FIRE RANGE TECHNICIAN Osteomyelitis ([facility] HHS/HCC) VANCOMYCIN TROUGH Routine 01/03/2024 2:3 0 PM FIRE RANGE TECHNICIAN Osteomyelitis ([facility] HHS/HCC) HEMOGLOBIN, GLYCOSYLATED Routine 10/10/2023 3:54 AM CDT LIPID PANEL Routine 01/09/2022 5:51 AM FIRE RANGE TECHNICIAN from Last 3 Months or Most Recently Relevant to Health Maintenance Results * (ABNORMAL) WBC WI DIFFERENTIAL (02/07/2024 1:00 PM FIRE RANGE TECHNICIAN) Only the most recent of2 resultswithin the time period is included. WBC 6.61 4.50 - 11.00 x10'3/uL 02/07/2024 2:04 PM FIRE RANGE TECHNICIAN [facility] SEG NEUTROPHILS 56 % 8:42 PM FIRE RANGE TECHNICIAN [facility] LYMPHOCYTES 32 % 02/07/2024 8:42 PM FIRE RANGE TECHNICIAN [facility] MONOCYTES 4 % 02/07/2024 8:42 PM FIRE RANGE TECHNICIAN [facility] EOSINOPHILS 6 % 02/07/2024 8:42 PM FIRE RANGE TECHNICIAN [facility] BASOPHILS 1 % 02/07/2024 8:42 PM FIRE RANGE TECHNICIAN [facility] METAMYELOCYTES 1 % 02/07/2024 8:42 PM FIRE RANGE TECHNICIAN [facility] ABS. NEUTROPHILS 3.69 1.80 - 7.70 x10'3/uL 02/07/2024 8:42 PM FIRE RANGE TECHNICIAN [facility] ABS. LYMPHOCYTES 2.12 1.00 - 4.80 x10'3/uL 02/07/2024 8:42 PM FIRE RANGE TECHNICIAN [facility] ABS. MONOCYTES 0.26 0.24 - 0.86 x10'3/uL 02/07/2024 8:42 PM FIRE RANGE TECHNICIAN [facility] ABS. EOSINOPHILS 0.40(H) 0.04 - 0.36 x10'3/uL 02/07/2024 8:42 PM FIRE RANGE TECHNICIAN [facility] ABS. BASOPHILS 0.07 0.01 - 0.08 x10'3/uL 02/07/2024 8:42 PM FIRE RANGE TECHNICIAN [facility] ABS. METAMYELOCYTES 0.07(H) 0.00 x10'3/uL 02/07/2024 8:42 PM FIRE RANGE TECHNICIAN [facility] DIFFERENTIAL TYPE MANUAL DIFFERENTIAL 02/07/2024 8:42 PM FIRE RANGE TECHNICIAN [facility] PLT EST. ADEQUATE 02/07/2024 8:42 PM [facility] 02/07/2024 1:00 PM FIRE RANGE TECHNICIAN us Andrew Eddy MD LABORATORY Final Result [facility] [address] [place] [address], [facility] [address] [place] [address] [place] [address], * (ABNORMAL) COMPREHENSIVE METABOLIC PANEL (02/07/2024 11:00 AM FIRE RANGE TECHNICIAN) Only the most recent of6 resultswithin the time period is included. GLUCOSE 107(H) 70 - 99 MG/DL 02/07/2024 2:58 PM FIRE RANGE TECHNICIAN [facility] BUN 9 7 - 18 MG/DL 02/07/2024 2:58 PM FIRE RANGE TECHNICIAN [facility] CREATININE S/P/B 0.74 0.50 - 1.20 MG/DL 02/07/2024 2:58 PM FIRE RANGE TECHNICIAN [facility] SODIUM S/P/B 137 136 - 145 MMOL/L 02/07/2024 2:58 PM [facility] POTASSIUM S/P/B 3.7 3.5 - 5.1 MMOL/L 02/07/2024 2:58 PM FIRE RANGE TECHNICIAN [facility] CHLORIDE S/P/B 100 100 - 108 MMOL/L 02/07/2024 2:58 PM FIRE RANGE TECHNICIAN [facility] CO2 29.6 21.0 - 32.0 MMOL/L 02/07/2024 2:58 PM [facility] CALCIUM S/P/B 8.7 8.5 - 10.1 MG/DL 02/07/2024 2:58 PM [facility] BILIRUBIN TOTAL S/P/B 0.2 0.2 - 1.2 MG/DL 02/07/2024 2:58 PM [facility] Comment: THIS ASSAY IS NOT RECOMMENDED FOR PATIENTS UNDERGOING TREATMENT WITH ELTROMBOPAG DUE TO THE POTENTIAL FOR FALSELY ELEVATED RESULTS. TOTAL PROTEIN S/P/B 7.4 6.4 - 8.2 G/DL 02/07/2024 2:58 PM [facility] ALBUMIN S/P/B 2.9(L) 3.4 - 5.0 G/DL 02/07/2024 2:58 PM [facility] AST 20 15 - 37 U/L 02/07/2024 2:58 PM [facility] ALT 20 14 - 55 U/L 02/07/2024 2:58 PM [facility] ALKALINE PHOSPHATASE S/P/B 125 50 - 136 U/L 02/07/2024 2:58 PM [facility] ANION GAP 7.4 5.0 - 15.0 MMOL/L 02/07/2024 2:58 PM [facility] BUN CREATININE RATIO 12.2 6 - 26 02/07/2024 2:58 PM [facility] A/G RATIO 0.6(L) 1.0 - 2.5 RATIO 02/07/2024 2:58 PM FIRE RANGE TECHNICIAN [facility] GFR ESTIMATE >90 >90 ML/MIN/1.7 3 M2 02/07/2024 2:58 PM FIRE RANGE TECHNICIAN [facility] Comment: NOTE: eGFR is not calculated for patients <18 years of age or gender unknown. This is an estimated GFR calculation using the new CKD EPI creatinine equation without race and so does not require a correction factor for race. This estimated GFR should not be used for calculating drug doses. 02/07/2024 11:0 0 AM FIRE RANGE TECHNICIAN us Andrew Eddy MD LABORATORY Final Result [facility] [address] [facility] [place] [address], * (ABNORMAL) CBC W/DIFF AUTOMATED (02/07/2024 11:00 AM FIRE RANGE TECHNICIAN) Only the most recent of6 resultswithin the time period is included. WBC 6.61 4.50 - 11.00 x10'3/uL 02/07/2024 1:58 PM FIRE RANGE TECHNICIAN [facility] RBC 5.93(H) 4.00 - 5.20 x10'6/uL 02/07/2024 1:58 PM FIRE RANGE TECHNICIAN [facility] HGB 11.3(L) 12.0 - 16.0 G/DL 02/07/2024 1:58 PM FIRE RANGE TECHNICIAN [facility] HCT 39.4 38.0 - 48.0 % 02/07/2024 1:58 PM FIRE RANGE TECHNICIAN [facility] MCV 66.4(L) 80.0 - 100.0 FL 02/07/2024 1:58 PM FIRE RANGE TECHNICIAN [facility] MCH 19.1(L) 26.0 - 34.0 PG 02/07/2024 1:58 PM FIRE RANGE TECHNICIAN [facility] MCHC 28.7(L) 31.0 - 37.0 G/DL 02/07/2024 1:58 PM FIRE RANGE TECHNICIAN [facility] RDW 20.2(H) 11.6 - 14.8 % 02/07/2024 1:58 PM FIRE RANGE TECHNICIAN [facility] PLT 252 130 - 400 x10'3/uL 02/07/2024 1:58 PM FIRE RANGE TECHNICIAN [facility] MPV 9.2 7.0 - 12.0 FL 02/07/2024 1:58 PM FIRE RANGE TECHNICIAN [facility] CBC COMMENT MANUAL DIFFERENTIAL AND RBC/PLT MORPHOLOGY TO FOLLOW. 02/07/2024 1:58 PM FIRE RANGE TECHNICIAN [facility] 02/07/2024 11:0 0 AM FIRE RANGE TECHNICIAN Andrew Eddy MD LABORATORY Final Result Performing Organization Address [facility] Co de Phone Number [facility] [address] [facility] [place] [address], * VANCOMYCIN TROUGH (01/31/2024 9:42 AM FIRE RANGE TECHNICIAN) Only the most recent of5 resultswithin the time period is included. VANCOMYCIN TROUGH 18.3 10 - 20 MCG/ML 01/31/2024 6:51 PM FIRE RANGE TECHNICIAN [facility] Comment: THERAPEUTIC: 10.0-20.0 TOXIC: >25.0 01/31/2024 9:42 AM FIRE RANGE TECHNICIAN Andrew Eddy MD LABORATORY Final Result Performing Organization Address City/[facility]/ZIP Co de Phone Number [facility] [address] [place] [address], * IR PICC PLC GREATER 5YR (01/04/2024 9:17 AM FIRE RANGE TECHNICIAN) Anatomical Region Laterality Modality Chest Interventional R adiology, Radiographic Imaging, Radiographic Imaging 01/04/2024 9:12 AM FIRE RANGE TECHNICIAN Impressions 01/04/2024 9:15 AM FIRE RANGE TECHNICIAN IMPRESSION: 1. Procedure note for right arm basilic 5 Trinidadian double-lumen PICC placement. 2. Tip in good position at the SVC atrial junction. Catheter okay for immediate use. Ordered By: VENITA DEAN Interpreted By: Kiara Wallace MD, 01/04/2024 9:12 AM Narrative 01/04/2024 9:[address] [address] Exam: Ultrasound fluoroscopy guided peripherally inserted central catheter placement Indication: 53 female presenting for PICC placement for central intravenous access for administration of antibiotics for osteomyelitis Comparison: None Procedure technique and findings: Informed verbal and written consent was obtained from the patient, patient's medical power of manager latin. The procedure was discussed including the rationale, alternatives, benefits and risks. Patient was positioned supine. The right upper arm was assessed for venous patency. The basilic vein was identified and targeted the mid upper arm. Patency was confirmed with ultrasound and an image stored and saved in the imaging archive. Timeout was performed. Sterile ultrasound technique, and maximum sterile barrier technique including hand wash with soap and water, was employed for the procedure. The right upper arm was prepped and draped. 1% lidocaine was administered for local anesthesia. 21-gauge micropuncture needle access was obtained with ultrasound guidance with fluoroscopic confirmation of intravascular wire access. A small skin incision was then made. The needle was removed and a PICC sheath advanced over the wire. A wire was advanced into the SVC and used for measuring the appropriate length of the PICC which was cut to 44 cm. Sheath dilator and wire were removed followed by attempted advancement of a 5 Trinidadian double lumen PICC into the SVC. There was initial resistance encountered to advancement of the catheter. A nitinol microwire was used to try and advance catheter over the wire however there was again resistance. A small volume of contrast was administered through one of the catheter ports placed inside the vascular sheath demonstrating venous patency with a couple of prominent venous valves. The catheter was finally pushed through with gentle traction over the wire into the SVC. Both ports aspirate and flush well The patient remained asymptomatic tolerating the procedure well. Patient's radiation exposure - Reference Air Kerma (Ka,r) 14.86 mGy; 2 fluoroscopy images recorded. Butcher Or Smallgoods Maker: Dr. Wallace Procedure Note Kiara Wallace MD - 01/04/2024 [facility] [address] [place], [place] [address] Exam: Ultrasound fluoroscopy guided peripherally inserted central catheterplacement Indication: 53 female presenting for PICC placement for centralintravenous access for administration of antibiotics for osteomyelitis Comparison: None Procedure technique and findings: Informed verbal and written consent wasobtained from the patient, patient's medical power of manager latin. Theprocedure was discussed including the rationale, alternatives, benefitsand risks. Patient was positioned supine. The right upper arm was assessed for venouspatency. The basilic vein was identified and targeted the mid upper arm.Patency was confirmed with ultrasound and an image stored and saved in the[employer] archive. Timeout was performed. Sterile ultrasound technique, and maximum sterile barrier techniqueincluding hand wash with soap and water, was employed for the procedure.The right upper arm was prepped and draped. 1% lidocaine was administered for local anesthesia. 21-gauge micropunctureneedle access was obtained with ultrasound guidance with fluoroscopicconfirmation of intravascular wire access. A small skin incision was thenmade. The needle was removed and a PICC sheath advanced over the wire. Awire was advanced into the SVC and used for measuring the appropriatelength of the PICC which was cut to 44 cm. Sheath dilator and wire wereremoved followed by attempted advancement of a 5 Trinidadian double lumen PICCinto the SVC. There was initial resistance encountered to advancement ofthe catheter. A nitinol microwire was used to try and advance catheterover the wire however there was again resistance. A small volume ofcontrast was administered through one of the catheter ports placed insidethe vascular sheath demonstrating venous patency with a couple ofprominent venous valves. The catheter was finally pushed through withgentle traction over the wire into the SVC. Both ports aspirate and flushwell The patient remained asymptomatic tolerating the procedure well. Patient's radiation exposure - Reference Air Kerma (Ka,r) 14.86 mGy; 2fluoroscopy images recorded. Butcher Or Smallgoods Maker: Dr. Wallace IMPRESSION: 1. Procedure note for right arm basilic 5 Trinidadian double-lumen PICCplacement. 2. Tip in good position at the SVC atrial junction. Catheter okay forimmediate use. Ordered By: VENITA DEAN Interpreted By: Kiara Wallace MD, 01/04/2024 9:12 AM Venita Dean NP INTERVENTIONAL RADIOLOGY Final R esult * CULTURE, WOUND, W/GRAM STAIN (01/04/2024 8:47 AM FIRE RANGE TECHNICIAN) SPEC DESCRIPTION PICC CATHETER 01/04/2024 8:48 AM FIRE RANGE TECHNICIAN [facility] SPECIAL REQUESTS NO SPECIAL REQUEST 01/04/2024 8:48 AM FIRE RANGE TECHNICIAN [facility] CULTURE RESULT NO GROWTH 3 DAYS 01/07/2024 8:29 AM FIRE RANGE TECHNICIAN [facility] CULTURE RESULT NOTE: WOUND AND TISSUE CULTURES ARE ROUTINELY SCREENED FOR AEROBIC ORGANISMS ONLY. 01/07/2024 8:29 AM FIRE RANGE TECHNICIAN [facility] PERIPHERALLY INSERTED CENTRAL CATHETER / Unknown 01/04/2024 8:47 AM FIRE RANGE TECHNICIAN 01/04/2024 8:52 AM FIRE RANGE TECHNICIAN Venita Dean NP MICROBIOLOGY - GENERAL ORDERABLE S Final Result [facility] [address] [place] [address], [place] [phone] * (ABNORMAL) HEMOGLOBIN, GLYCOSYLATED (10/10/2023 3:54 AM CDT) HGB A1C 6.9(H) <5.7 % 10/10/2023 12:27 PM CDT [facility] Comment: ADA GUIDELINES 2010 5.7 TO 6.4% INCREASED RISK OF DIABETES > OR = 6.5% CONSISTENT WITH DIABETES ESTIMATED AVG GLUCOSE 151 mg/dL 10/10/2023 12:27 PM CDT [facility] 10/10/2023 3:54 AM CDT Jose A Cheema MD LABORATORY Final Result [facility] [address] [place] [address], [place] [phone] * (ABNORMAL) LIPID PANEL (01/09/2022 5:51 AM FIRE RANGE TECHNICIAN) CHOLESTEROL 216(H) <200.0 MG/DL 01/09/2022 6:37 AM [facility] TRIGLYCERIDES 186(H) <150 MG/DL 01/09/2022 6:37 AM [facility] HDL 26(L) >40.0 MG/DL 01/09/2022 6:37 AM [facility] LDL (CALCULATED) 153(H) <100 MG/DL 01/09/2022 6:37 AM [facility] NON HDL CHOLESTEROL 190(H) <130 MG/DL 01/09/2022 6:37 AM [facility] CHOL/HDL RATIO 8.3(H) 0.0 - 4.5 01/09/2022 6:37 AM [facility] VLDL CALCULATION 37 5 - 55 MG/DL 01/09/2022 6:37 AM [facility] LIPID INTERPRETATION 01/09/2022 6:37 AM [facility] Comment: [facility] CONCENSUS REPORT RECOMMENDATIONS: ADULT CHILD LOW RISK: CHOLESTEROL <200 <170 TRIGLYCERIDE <150 --- HDL >=60 --- LDL <100 <110 BORDERLINE: CHOLESTEROL 200-239 170-199 TRIGLYCERIDE 150-199 --- HDL 40-59 --- LDL 100-159 110-129 HIGH RISK: CHOLESTEROL >=240 >=200 TRIGLYCERIDE >=200 --- HDL <40 --- LDL >=160 >=130 01/09/2022 5:51 AM FIRE RANGE TECHNICIAN Pat Najera MD LABORATORY Final Result Performing Organization Address City/State/[facility] Co de Phone Number [facility] [address] [place] [address], from Last 3 Months or Most Recently Relevant to Health Maintenance Additional Health Concerns Infection Onset Date Last Indicated MRSA Comment:11/23/17 +MRSA skin lesion from [facility] [place] 01/08/22 left foot (TH) 07/17/22 +MRSA Left foot 12/18/23 +MRSA Right foot 01/10/2022 12/18/2023 Insurance [employer]UZ Advance Directives * Full Code (Latest Code Status on File) Date Activated Date Inactivated Comments 12/24/2023 2:24 PM * Full Code Date Activated Date Inactivated Comments 12/18/2023 9:56 PM 2023 6:25 PM * Full Code Date Activated Date Inactivated Comments 10/08/2023 10:33 PM 10/11/2023 3:22 PM * Full Code Date Activated Date Inactivated Comments 11/20/2022 9:08 AM 11/21/2022 7:56 PM * Full Code Date Activated Date Inactivated Comments 08/11/2022 1:55 PM 11/19/2022 8:03 PM Care Teams Manager Latin Relationship Specialty Start Date End Date Apollo Pearce MD [address] [place], [place] [phone] PCP - General HOSPITALIST 10/11/23
[2024-03-31] MEDS: LACTATED RINGERS 1,000 ML 999 ML IV CONT (17:56)
[2024-03-31] MEDS: SODIUM CHLORIDE 0.9% IV 1,000 ML 999 ML IV CONT (17:57)
[2024-03-31 19:49] LABS: Add Urine Microscopic? YES; Appearance Urine Turbid (Clear); Bacteria Urine 4+ /hpf; Bilirubin Urine Negative (Negative); Blood Urine 2+ (Negative); Color Urine Yellow (Yellow); Glucose Urine UA Negative (Negative); Ketones Urine Trace mg/dL (Negative); Leukocyte Esterase Ur 1+ LEU/UL (Negative); Nitrate Urine Negative (Negative); Non Pathogenic Casts 0-2; Protein Urine 4+ mg/dL (Negative); RBC Urine 51-100 /hpf (0-2); Specific Grav Ur 1.025 (1.001-1.035); Squamous Epithelial Cell Urine None Seen /hpf (Few); WBC Urine 51-100 /hpf (0-3); pH Urine 7.5 (5.0-9.0)
[2024-03-31] MEDS: POTASSIUM CHLORIDE 20 MEQ PACKET (FOR LIQUID) 40 MEQ PO (19:51)
[2024-03-31] MEDS: LABETALOL HCL INJ 100 MG/20 ML VIAL 20 MG IV PUSH (20:03)
[2024-03-31] MEDS: METOCLOPRAMIDE HCL INJ 10 MG/2 ML VIAL IV PUSH (20:03)
== END 2024-03-31 21:24 | disposition home or self-care (01) ==
PROVIDERS: Physician Assistant; Emergency Provider Emergency Medicine
DX: N39.0 Urinary tract infection, site not specified (principal); R11.2 Nausea with vomiting, unspecified; E86.0 Dehydration; Z20.822 Contact with and (suspected) exposure to COVID-19
CPT/HCPCS: 36415; 80053; 81001; 83690; 85025; 87086; 87186; 87637; 96361; 96365; 96375; 99284; A9270; J0696; J2765; J7030; J7120